=== PATIENT | female | born 1940 | race African-American/Black ===

== ENCOUNTER 2017-03-26 02:51 | Inpatient (IN) ==
[2017-03-26] MEDS ORDERED: ASPIRIN 325 MG TABLET ONE (03:11)
[2017-03-26] MEDS ORDERED: NITROGLYCERIN SL 0.4 MG TABLET SL PRN (03:40)
[2017-03-26] MEDS ORDERED: ASPIRIN 325 MG TABLET PO STA (03:40)
[2017-03-26 03:56] LABS: Basophils # 0.1 10*3/uL (0.0-0.2); Basophils % 0.9 % (0.0-0.8); Eosinophils % 0.1 % (0.00-10.9); Hematocrit 27.8 VOL% (35.7-47.0); Hemoglobin 9.3 GM/DL (12.0-16.0); Immature Granulocytes % 0.7 %; Immature Granulocytes Absolute 0.06 #; Lymphocytes # 0.8 10*3/uL (1.4-4.0); Lymphocytes % 8.8 % (21.3-54.2); Mean Corpuscular HGB Conc 33.5 GM/DL (32-36); Mean Corpuscular Hemoglobin 29 PG (27-34); Mean Corpuscular Volume 85.3 FL (87-102); Monocytes # 0.5 10*3/uL (0.11-0.8); Neutrophils # 7.5 10*3/uL (1.4-7.4); Neutrophils % 83.5 % (38.7-73.9); Platelet Count 184 T/CUMM (130-400); Red Blood Count 3.26 MC/CUMM (3.8-5.5); Red Cell Distribution Width 15.1 % (9.3-17.3); White Blood Count 8.9 T/CUMM (4-12)
[2017-03-26 04:22] LABS: Bilirubin,Total 1.3 MG/DL (0.2-1.0); Osmolality,Calculated 309.4 MOS/KG (273-304); Potassium 4.7 MMOL/L (3.5-5.1); Total Protein 7.5 G/DL (6.4-8.3)
--- NOTE | 2017-03-26 04:25 | Emergency Department Note ---
I, Erica Sloan, am scribing for, and in the presence of, Jonny Colunga MD 03: 55. IKeanu Andrew, MD, personally performed the services described in this documentation, ascribed by Erica Sloan in my presence, and it is both accurate and complete 425 . Arrival - Arrival Chief Complaint: Chest Pain Stated Complaint: chest pains ED Nursing Triage Note: Pt family states thats she has been at home sick complaining of chest pain since yesterday morning. States that she woke them up this morning complaining of pain in the center of her chest that is radiating down in her abd. Pt states that she has sob with pain. Complains of n/v. Mode of Arrival: Wheelchair Limitations: No Limitations Source: Patient Time Seen by Provider: 03/26/17 03:39 - History of Present Illness HPI Narrative: Pt is a 77 y/o female that came to the ED with c/o CP that began yesterday morning. Pt has associated sxs of N/V and SOB but denies edema of the lower extremities. Pt reports the pain radiates down into her abdomen. Pt states she does not know what she was doing when sxs came on. Pt reports the pain is in the middle of her chest. She states she did take a 81 mg aspirin. Pt has a PMHx of HTN, NIDDM, OR, dyslipidemia, renal failure, and COPD. No other complaints/ pain in ED. Onset (ago): day(s) Consistency: constant Severity: mild, moderate Severity scale (1-10): 4 Quality: sharp Allergies/Adverse Reactions: Allergies Allergy/AdvReac Type Severity Reaction Status Date / Time No Known Allergies Allergy Verified 12/18/16 13:48 Home Medications: Home Medications Medication Instructions Recorded Confirmed Type Allopurinol 100 mg PO DAILY 08/10/16 03/26/17 History Aspirin [Ecotrin] 81 mg PO DAILY 08/10/16 03/26/17 History Ferrous Sulfate 325 mg PO DAILY 08/10/16 03/26/17 History Albuterol Sulfate [Ventolin HFA] 2 puff INH Q6H PRN 11/29/16 03/26/17 History Isosorbide Mononitrate [Isosorbide 30 mg PO BID 11/29/16 03/26/17 History Mononitrate ER] Potassium Chloride 20 meq PO QAM 11/29/16 03/26/17 History Amiodarone Tab [Cordarone Tab] 200 mg PO BID #40 tablet 12/03/16 03/26/17 Rx Doxazosin [Cardura] 2 mg PO BID W/MEALS #60 tablet 12/03/16 03/26/17 Rx NIFEdipine XL TAB [Procardia Xl] 30 mg PO DAILY #30 tablet 12/03/16 03/26/17 Rx Simvastatin [Zocor] 10 mg PO BEDTIME #30 tablet 12/03/16 03/26/17 Rx hydrALAZINE TAB [Apresoline Tab] 50 mg PO TID #90 tablet 12/03/16 03/26/17 Rx Levofloxacin Tab [Levaquin Tab] 500 mg PO Q24H #7 tablet 12/18/16 03/26/17 Rx Phenazopyridine [Pyridium] 95 mg PO TID W/MEALS #20 tablet 12/18/16 03/26/17 Rx Acetamin/Codeine 300-30 Tab 1 tablet PO Q6H #10 tablet 01/10/17 03/26/17 Rx [Tylenol/Codeine #3] Nitrofurantoin Macro/[place] 100 mg PO BID #10 capsule 01/10/17 03/26/17 Rx [Macrobid] Review of System - Review of System 12 point system: reviewed and no additional remarkable complaints except as stated - Review of System Constitutional: Absent: chills, fever Respiratory: Present: other (SOB). Absent: cough Cardiovascular: Present: chest pain Gastrointestinal: Present: abdominal pain (CP radiates to the abdomen), nausea, vomiting Musculoskeletal: Absent: joint swelling Skin: Absent: rash Neurological: Absent: headache Psychiatric: Absent: anxiety Medical,Surgical,& Family Hx - Medical History Cardio: History of: Hypertension, OR, Valvular Heart Disease (aortic sclerosis) HEENT: History of: Eye Problem (retinal hemorrhage) Endocrine: History of: Diabetes Mellitus (NIDDM), Dyslipidemia Rheumatology: History of;: Gout Respiratory: History of: COPD Renal: History of: Renal Failure (chronic kidney disease stage III), Renal Problems Musculoskeletal: History of: Musculoskeletal Problems (osteoarthritis) No history of: Amputation Hematology: History of: Anemia - Surgical History Cardiac Surgeries: Sugical HX of: Cardiac Catheterization (negative) Thoracic Surgeries: Patient denies;: Organ Transplant Abdominal Surgeries: Patient denies: Abdominal Surgery Reproductive Surgeries: Surgical HX of;: Section, Hysterectomy Patient denies;: Genitourinary Surgery - Family History Family History: Reports;: Family Diabetes, Family Hypertension - Social History Smoking Status: Never smoker Frequency of Alcohol Use: None Type of Drug Use: None Exam Vital Signs: Vital Signs Temperature 98.6 F 03/26/17 02:51 Pulse Rate 81 03/26/17 02:51 Respiratory Rate 20 03/26/17 03:10 Blood Pressure 233/105 03/26/17 02:51 O2 Sat by Pulse Oximetry 87 L 03/26/17 02:51 - General General appearance: alert, in distress (in distress due to secondary SOB) - Head Head exam: Present: atraumatic, normocephalic - Eye Eye exam: Present: PERRL, EOMI - ENT ENT exam: Present: mucous membranes moist. Absent: mucous membranes dry - Neck Neck exam: Present: full ROM. Absent: tenderness - Chest Chest inspection: Present: symmetric chest wall rise. Absent: tenderness - Respiratory Respiratory exam: Present: normal lung sounds bilaterally, other (tachypnic). Absent: respiratory distress - Cardiovascular Cardiovascular exam: Present: regular rate, normal rhythm, normal heart sounds - Abdominal Exam Abdominal exam: Present: soft. Absent: tenderness - Extremities Exam Extremities exam: Present: full ROM. Absent: tenderness, pedal edema - Back Exam Back exam: Present: full ROM. Absent: tenderness - Neurological Exam Neurological exam: Present: alert, oriented X3, CN II-XII intact. Absent: motor sensory deficit - Psychiatric Psychiatric exam: Present: normal affect, normal mood - Skin Skin exam: Present: warm, diaphoresis Course Course Narrative: Chest pain improved with nitro SL. Labs with elevated troponin and BNP and with elevated BP. EKG with biphasic t waves in V1 and V2. Discussed with vehicle calibration engineer cribber, Dr. Friend, but he refuses admission as the patient had a heart cath in November with only mild to moderate disease. Discussed with Hospitalist for admit. Results - Labs CBC & BMP: 03/26/17 03:09 03/26/17 03:09 Lab Results: I have reviewed the patients labs Labs: Laboratory Tests 03/26/17 03:09 RBC 3.26 L Hgb 9.3 L Hct 27.8 L MCV 85.3 L MPV 13.0 H Neut % (Auto) 83.5 H Lymph % (Auto) 8.8 L Baso % (Auto) 0.9 H Neut # (Auto) 7.5 H Lymph # (Auto) 0.8 L Laboratory Tests 03/26/17 03:09 Sodium 147 H Chloride 118 H Carbon Dioxide 15 L Anion Gap 18.7 H BUN 51 H Creatinine 2.90 H Glucose 177 H Calculated Osmolality 309.4 H Total Bilirubin 1.30 H Laboratory Tests 03/26/17 03:09 Troponin I 0.523 H Laboratory Tests 03/26/17 03:09 B-Natriuretic Peptide > 5000 H - Diagnostic Findings Procedure: Chest x-ray: image reviewed by me (Relatively stable from previous per my read with mild evidence of volume overload) Disposition Clinical Impression: Hypertensive emergency, Hypoxemia, Elevated troponin, CKD (chronic kidney disease), Chest pain Case discussed with: patient, patient's family Disposition: Still a Patient Condition: Guarded
[2017-03-26] MEDS ORDERED: NITROGLYCERIN 2% OINT 1 INCH/GM PACK TOP STA (04:28)
[2017-03-26 04:58] LABS: Apearance,Urine CLOUDY (Clear); Bacteria,Urine Few /HPF (Few); Bilirubin,Urine Negative (Negative); Blood, Urine Moderate mg/dL (Negative); Glucose,Urine (UA) Negative (Negative); Ketones,Urine Negative (Negative); Mucus,Urine Occasional /LPF (Occasional); Nitrite,Urine Negative (Negative); Protein,Urine >=500 MG/DL; RBC,Urine 15 /HPF (0-4); Squamous Epithelial Cell,Urine Occasional /HPF (0-10); Urine Color Yellow (Yellow); Urine Specific Gravity 1.011 (1.001-1.035); Urine Urobilinogen < 2.0 EU/DL (0.2-1.0)
[2017-03-26 05:02] LABS: Barbiturates Screen,Urine Negative (Negative); Benzodiazepines Screen,Urine Negative (Negative); Cannabinoid Screen,Urine Negative (Negative); Opiate Screen,Urine Negative (Negative); Phencyclidine Screen,Urine Negative (Negative)
[2017-03-26] MEDS ORDERED: NITROGLYCERIN 2% OINT 1 INCH/GM PACK TOP ONE (05:26)
[2017-03-26] MEDS: SODIUM CHLORIDE 0.9% 1,000 ML IV STA ×2 (05:36→06:56)
[2017-03-26] MEDS ORDERED: Albuterol Sulfate [Ventolin Hfa] 2 PUFF INH PRN (06:01)
--- NOTE | 2017-03-26 06:54 | EKG Report ---
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
--- NOTE | 2017-03-26 07:12 | History & Physical Report ---
Assessment and Plan (1) Hypertensive emergency Status: Acute Assessment and plan: Hypertensive Emergency/elevated cardiac enzymes/chest pain - Admit to ICU - telemetry - serial cardiac enzymes - IV Nicardipine infusion - Echocardiogram - Consult Cardiology - will monitor Current Visit: Yes (2) Epigastric abdominal pain Status: Acute Assessment and plan: Epigastric pain - Carafate - Protonix -will monitor Current Visit: Yes History of Present Illness Chief complaint: chest pain History of present illness: Ms. Mazariegos is a 77 year old female with a history of hypertension, diabetes, coronary artery disease, chronic kidney disease, and gout that presented to the ER with chest pain for 2 days. Patient reports chest pain was severe, substernal, and non-radiating. Patient also complains shortness of breath is worse with exertion, palpitations, decreased appetite, epigastric pain, and nausea. Patient had a cardiac catheterization on 11/30/2016 and it showed mild disease throughout the vessels. Dr. Eugene is her capsule inspector In the Er, patient was found to be hypoxic and have SBP>200's. Patient was felt to be in hypertensive emergerncy. ER doctor spoke to cardiolgy but the hospitalist service was asked to admit. Home Medications Medication Instructions Recorded Confirmed Type Allopurinol 100 mg PO DAILY 08/10/16 03/26/17 History Aspirin [Ecotrin] 81 mg PO DAILY 08/10/16 03/26/17 History Ferrous Sulfate 325 mg PO DAILY 08/10/16 03/26/17 History Albuterol Sulfate [Ventolin HFA] 2 puff INH Q6H PRN 11/29/16 03/26/17 History Isosorbide Mononitrate [Isosorbide 30 mg PO BID 11/29/16 03/26/17 History Mononitrate ER] Potassium Chloride 20 meq PO QAM 11/29/16 03/26/17 History Amiodarone Tab [Cordarone Tab] 200 mg PO BID #40 tablet 12/03/16 03/26/17 Rx Doxazosin [Cardura] 2 mg PO BID W/MEALS #60 tablet 12/03/16 03/26/17 Rx NIFEdipine XL TAB [Procardia Xl] 30 mg PO DAILY #30 tablet 12/03/16 03/26/17 Rx Simvastatin [Zocor] 10 mg PO BEDTIME #30 tablet 12/03/16 03/26/17 Rx hydrALAZINE TAB [Apresoline Tab] 50 mg PO TID #90 tablet 12/03/16 03/26/17 Rx Levofloxacin Tab [Levaquin Tab] 500 mg PO Q24H #7 tablet 12/18/16 03/26/17 Rx Phenazopyridine [Pyridium] 95 mg PO TID W/MEALS #20 tablet 12/18/16 03/26/17 Rx Acetamin/Codeine 300-30 Tab 1 tablet PO Q6H #10 tablet 01/10/17 03/26/17 Rx [Tylenol/Codeine #3] Nitrofurantoin Macro/[place] 100 mg PO BID #10 capsule 01/10/17 03/26/17 Rx [Macrobid] Allergies Allergy/AdvReac Type Severity Reaction Status Date / Time No Known Allergies Allergy Verified 12/18/16 13:48 12 point system: reviewed and no additional remarkable complaints except as stated Medical,Surgical,& Family Hx - Medical History Cardio: History of: Hypertension, [place], Valvular Heart Disease (aortic sclerosis) HEENT: History of: Eye Problem (retinal hemorrhage) Endocrine: History of: Diabetes Mellitus (NIDDM), Dyslipidemia Rheumatology: History of;: Gout Respiratory: History of: COPD Renal: History of: Renal Failure (chronic kidney disease stage III), Renal Problems Musculoskeletal: History of: Musculoskeletal Problems (osteoarthritis) No history of: Amputation Hematology: History of: Anemia - Surgical History Cardiac Surgeries: Sugical HX of: Cardiac Catheterization (negative) Thoracic Surgeries: Patient denies;: Organ Transplant Abdominal Surgeries: Patient denies: Abdominal Surgery Reproductive Surgeries: Surgical HX of;: Section, Hysterectomy Patient denies;: Genitourinary Surgery - Family History Family History: Reports;: Family Diabetes, Family Hypertension - Social History Smoking Status: Never smoker Frequency of Alcohol Use: None Type of Drug Use: None Exam - Constitutional Vitals: Period Temp Pulse Resp BP Sys/[place]cinty[place] Pulse Ox Last 24 Hr 98.3 F-98.6 F 81-81 20-20 233-233/105-105 87 General appearance: normal weight, no acute distress - Head Head exam: Present: normal inspection - Eye Eye exam: Present: EOMI - Neck Neck exam: Present: normal inspection - Respiratory Respiratory exam: Present: other (coarse breath sounds throughout). Absent: rhonchi, wheezes - Cardiovascular Cardiovascular exam: Present: regular rate and rhythm, systolic murmur. Absent : diastolic murmur - GI/Abdominal GI/Abdominal exam: Present: normal bowel sounds, soft. Absent: distended, tenderness - Extremities Exam Extremities exam: Absent: edema - Neurological Exam Neurological exam: Present: alert, oriented X3 - Psychiatric Psychiatric exam: Present: normal affect Results - Labs CBC & BMP: 03/26/17 03:09 03/26/17 03:09 - EKG EKG results: interpreted by ERMD (non-specific changes) - Diagnostic Findings Procedure: Chest x-ray: pending
--- NOTE | 2017-03-26 07:13 | EKG Report ---
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
--- NOTE | 2017-03-26 08:34 | XRay Report ---
XR chest 1V portable Indication: Chest pain Comparison: 29 November 2016 Findings: The heart and mediastinum are stable in size and configuration. The pulmonary vascularity is slightly increased with bilateral increased interstitial lung density. No other lung infiltrates, effusions, pneumothorax or other abnormality is demonstrated. Impression: Findings suggest mild cardiac decompensation. PROCEDURE INTERPRETED AT [facility] DEPARTMENT OF RADIOLOGY Final Report Signed by: Dr. Louie Ewing
[2017-03-26] MEDS ORDERED: ASPIRIN CHEW 81 MG TABLET PO ONE (08:45)
[2017-03-26] MEDS ORDERED: POTASSIUM CHLORIDE 20 MEQ TABLET PO ONE (08:45)
[2017-03-26] MEDS: PHENAZOPYRIDINE 95 MG TABLET PO SCH ×3 (08:48→16:21)
[2017-03-26] MEDS: POTASSIUM CHLORIDE 20 MEQ TABLET PO SCH (08:48)
[2017-03-26] MEDS: DOXAZOSIN 1 MG TABLET PO SCH ×2 (09:23→16:21)
[2017-03-26] MEDS: FERROUS SULFATE 325 MG TABLET PO SCH (09:24)
[2017-03-26] MEDS: AMIODARONE 200 MG TABLET PO SCH ×2 (09:24→20:55)
[2017-03-26] MEDS: ALLOPURINOL 100 MG TABLET PO SCH (09:24)
--- NOTE | 2017-03-26 10:39 | EKG Report ---
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
[2017-03-26] MEDS ORDERED: GLUCAGON 1 MG VIAL IM PRN (14:06)
[2017-03-26] MEDS ORDERED: niCARdipine INJ 25 MG in SODIUM CHLORIDE 0.9% 240 ML IV SCH (14:06)
[2017-03-26] MEDS ORDERED: DEXTROSE 50% 25 GM/50 ML VIAL IV PRN (14:06)
[2017-03-26] MEDS: ASPIRIN EC 81 MG TABLET PO SCH (14:43)
[2017-03-26] MEDS: PANTOPRAZOLE 40 MG TABLET PO SCH (14:44)
[2017-03-26] MEDS: SUCRALFATE 1 GM/10 ML UDCUP PO SCH ×4 (14:46→20:57)
[2017-03-26] MEDS: ACETAMINOPHEN/CODEINE 300-30 MG TABLET PO SCH ×3 (14:47→23:54)
[2017-03-26] MEDS: INSULIN LISPRO 100 UNIT/ML SUBCUT SCH ×3 (14:48→20:56)
[2017-03-26] MEDS: SIMVASTATIN 10 MG TABLET PO SCH (20:55)
[2017-03-27] MEDS: ACETAMINOPHEN/CODEINE 300-30 MG TABLET PO SCH ×3 (05:48→17:59)
[2017-03-27] MEDS: SUCRALFATE 1 GM/10 ML UDCUP PO SCH ×4 (08:07→22:24)
[2017-03-27] MEDS: INSULIN LISPRO 100 UNIT/ML SUBCUT SCH ×4 (08:07→22:30)
[2017-03-27] MEDS: ALLOPURINOL 100 MG TABLET PO SCH (08:07)
[2017-03-27] MEDS: PANTOPRAZOLE 40 MG TABLET PO SCH (08:08)
[2017-03-27] MEDS: POTASSIUM CHLORIDE 20 MEQ TABLET PO SCH (08:08)
[2017-03-27] MEDS: FERROUS SULFATE 325 MG TABLET PO SCH (08:08)
[2017-03-27] MEDS: PHENAZOPYRIDINE 95 MG TABLET PO SCH (08:08)
[2017-03-27] MEDS: ASPIRIN EC 81 MG TABLET PO SCH (08:08)
[2017-03-27] MEDS: AMIODARONE 200 MG TABLET PO SCH ×2 (08:08→22:23)
[2017-03-27] MEDS: DOXAZOSIN 1 MG TABLET PO SCH ×2 (08:14→17:59)
--- NOTE | 2017-03-27 09:39 | Cardiology Consult Note ---
Assessment and Plan - Time spent with patient Time spent with patient: Greater than 30 minutes (1) Paroxysmal atrial fibrillation Status: Chronic Assessment and plan: She has had this previously but has been stable her present medical regimen. She was admitted in sinus rhythm. Current Visit: Yes (2) Elevated brain natriuretic peptide (BNP) level Status: Acute Assessment and plan: This is probably secondary to diastolic dysfunction with acute hypertensive urgency and a mild exacerbation of heart failure. Current Visit: Yes (3) Coronary artery disease Status: Acute Assessment and plan: She had mild coronary disease previously with the last 3 months and cardiac catheterization. This is not playing a role at this time. Current Visit: Yes (4) Hypertensive urgency, malignant Status: Acute Assessment and plan: This is probably secondary to her missing 2 of her medications. At present her blood pressures are stable on medical therapy. Hopefully she will be able to go home soon. Current Visit: Yes (5) Chronic renal insufficiency, stage III (moderate) Problem details: stage III is baseline; came in with stage IV upon admission Status: Chronic Assessment and plan: This is chronic and really unchanged. Current Visit: No History of Present Illness - Data of Consult Patient: known to practice within the last 3 years Consult date: 03/27/17 Requesting Physician: Bhargav Herm[place]illo - Consult Narrative Reason for consult: Shortness of breath elevated BNP History of present illness: Ms. Mazariegos is a 77 year old female who was admitted through the emergency room shortness of breath and hypertensive urgency. Her chest x-ray per report in by her visualization may have mild cardiac decompensation. Her BNP was greater than 5000. She has had 2 troponins that are been flat and 0.523 and 0.514. Her ECG reveals sinus rhythm with possible left atrial enlargement and left ventricular hypertrophy. There is no acute ischemic changes. She denies any chest pain or palpitations. She recently in the last few days he ran out of 2 of her medications that had not gotten filled yet apparently they were at the drugstore she just had not gotten them. This morning her blood pressures are doing good her present medical regimen. Her history is significant in that she has been followed by Dr. Alexis and seen by Dr. Wilder. Recently in December this year she had an echocardiogram with an ejection fraction of 60% with left ventricular hypertrophy M mild elevated right-sided pressures. She had cardiac catheterization with less than 30% stenosis but a markedly elevated LVEDP. This could be consistent with diastolic dysfunction. She has chronic renal insufficiency with elevated creatinine. If present it appears that she is stable in her shortness of breath and mild cardiac decompensation if present and elevated BNP is prior from diastolic left ventricular function exacerbated by her severely elevated blood pressures. Her elevated blood pressure may be secondary to missing 2 medications for the last several days. At this time probably no further evaluation is needed. She could probably discharge on her present medical regimen. CC: Annel Lake MD - Home Medications and Allergies Home Medications: Home Medications Medication Instructions Recorded Confirmed Type Allopurinol 100 mg PO DAILY 08/10/16 03/26/17 History Aspirin [Ecotrin] 81 mg PO DAILY 08/10/16 03/26/17 History Ferrous Sulfate 325 mg PO DAILY 08/10/16 03/26/17 History Albuterol Sulfate [Ventolin HFA] 2 puff INH Q6H PRN 11/29/16 03/26/17 History Isosorbide Mononitrate [Isosorbide 30 mg PO BID 11/29/16 03/26/17 History Mononitrate ER] Potassium Chloride 20 meq PO QAM 11/29/16 03/26/17 History Amiodarone Tab [Cordarone Tab] 200 mg PO BID #40 tablet 12/03/16 03/26/17 Rx Doxazosin [Cardura] 2 mg PO BID W/MEALS #60 tablet 12/03/16 03/26/17 Rx NIFEdipine XL TAB [Procardia Xl] 30 mg PO DAILY #30 tablet 12/03/16 03/26/17 Rx Simvastatin [Zocor] 10 mg PO BEDTIME #30 tablet 12/03/16 03/26/17 Rx hydrALAZINE TAB [Apresoline Tab] 50 mg PO TID #90 tablet 12/03/16 03/26/17 Rx Levofloxacin Tab [Levaquin Tab] 500 mg PO Q24H #7 tablet 12/18/16 03/26/17 Rx Phenazopyridine [Pyridium] 95 mg PO TID W/MEALS #20 tablet 12/18/16 03/26/17 Rx Acetamin/Codeine 300-30 Tab 1 tablet PO Q6H #10 tablet 01/10/17 03/26/17 Rx [Tylenol/Codeine #3] Nitrofurantoin Macro/[place] 100 mg PO BID #10 capsule 01/10/17 03/26/17 Rx [Macrobid] Allergies/Adverse Reactions: Allergies Allergy/AdvReac Type Severity Reaction Status Date / Time No Known Allergies Allergy Verified 12/18/16 13:48 Review of systems: Constitutional: Denies anorexia, chills, fatigue, fever, frequent falls, night sweats, weight gain, weight loss Eyes: Denies visual changes or loss of vision Ears: Denies decreased hearing, vertigo Nose, mouth and throat: Denies dysphagia, epistaxis, headaches, neck pain, tongue swelling, Neck: Denies thyromegaly or masses. No stiffness. Cardiovascular: as per HPI Respiratory: Denies cough, dyspnea, hemoptysis, dyspnea on exertion, wheezing, snoring Gastrointestinal: Denies abdominal pain, constipation, dyspepsia, dysphagia, hematemesis, hematochezia, melena, nausea, vomiting Genitourinary: Denies dysuria, hematuria, nocturia Musculoskeletal: Denies arthralgias, joint swelling, muscle weakness, myalgias Neurological: denies abnormal gait, abnormal speech, confusion, convulsions, frequent falls, headaches, memory loss, syncope Psychiatric: Denies anxiety, confusion, depression Endocrine: Denies cold intolerance, fatigue, heat intolerance Hematologic/Lymphatic: Denies easy bleeding, easy bruising Dermatologic: Denies Rash, itching, shingles Medical,Surgical,& Family Hx - Medical History Cardio: History of: Hypertension, [place], Valvular Heart Disease (aortic sclerosis) HEENT: History of: Eye Problem (retinal hemorrhage) Endocrine: History of: Diabetes Mellitus (NIDDM), Dyslipidemia Rheumatology: History of;: Gout Respiratory: History of: COPD Renal: History of: Renal Failure (chronic kidney disease stage III), Renal Problems Musculoskeletal: History of: Musculoskeletal Problems (osteoarthritis) No history of: Amputation Hematology: History of: Anemia - Surgical History Cardiac Surgeries: Sugical HX of: Cardiac Catheterization (negative) Thoracic Surgeries: Patient denies;: Organ Transplant, Lobectomy Neurologic Surgeries: Patient denies: Neurologic Surgery Abdominal Surgeries: Patient denies: Abdominal Surgery Reproductive Surgeries: Surgical HX of;: Section, Hysterectomy Patient denies;: Genitourinary Surgery - Family History Family History: Reports;: Family Diabetes, Family Hypertension - Social History Smoking Status: Never smoker Frequency of Alcohol Use: None Type of Drug Use: None Physical Examination Vital Signs Temp Pulse Resp BP Pulse Ox 98.3 F 81 20 233/105 87 L 03/26/17 02:51 03/26/17 02:51 03/26/17 02:51 03/26/17 02:51 03/26/17 02:51 Other: General appearance: normal weight, no acute distress Head exam: normal inspection, atraumatic Eye exam: Pupils are equal and reactive. EOMI. There is no trauma. Ear exam: Anatomically normal. Normal auditory acuity to conversation. Oral exam: No significant oral lesions. Neck exam: normal inspection no JVD. No carotid bruit. Trachea is in midline. Respiratory exam: clear to auscultation bilaterally posteriorly and anteriorly with good air movement. No rales, rhonchi or wheezes. Cardiovascular exam: regular rate and rhythm, she has a faint 1/6 systolic murmur but no gallop or rub. No precordial lift. No bruits over the major arteries. Chest wall/torso: Anatomically normal. No tenderness, deformity Peripheral Pulses: 2+ throughout. GI/Abdominal exam: normal bowel sounds, soft and nontender, no abdominal bruits or pulsatile masses. Musculoskeletal/Extremities exam: normal inspection without edema or cyanosis. No deformities or trauma. Neurological exam: alert, oriented X3. There is no gross neurologic deficits. Psychiatric exam: normal affect, normal mood. Cognitive function is grossly intact. Skin exam: normal color, warm. No rashes or other skin lesions. Result/EKG - Labs CBC & BMP: 03/26/17 03:09 03/26/17 03:09 Lab Results: I have reviewed the past 24 hour labs Labs: Laboratory Results - last 24 hr 03/26/17 03/26/17 15:58 20:54 POC Glucose 136 H 117 H - Impressions Impressions: ECG as described above. Has sinus rhythm possible left atrial enlargement with possible left ventricular hypertrophy. No acute ischemic changes.
--- NOTE | 2017-03-27 11:43 | Hospitalist Progress Note ---
Assessment and Plan (1) Malignant hypertension Status: Resolved Assessment and plan: resolved, off cardene Current Visit: No (2) CHF exacerbation Status: Acute Assessment and plan: acute diastolic dysfunction due to elevated b/p. BNP 5000. echo in Feb ef 60%, lasix bid Current Visit: Yes (3) Acute on chronic renal failure Status: Acute Assessment and plan: will ask Dr. Soriano for help as lasix may worsen renal function, has protein and RBC in urine Current Visit: No (4) Type 2 diabetes mellitus Status: Chronic Assessment and plan: hgb A1c, diabetic re-education Current Visit: No Qualifiers: Diabetes mellitus complication status: with kidney complications Diabetes mellitus complication detail: with chronic kidney disease Diabetes mellitus intermediate designer insulin use: without snf use Chronic kidney disease stage: stage 3 (moderate) Qualified Code(s): E11.22 - Type 2 diabetes mellitus with diabetic chronic kidney disease; N18.3 - Chronic kidney disease, stage 3 ( moderate) (5) Paroxysmal atrial fibrillation Status: Chronic Assessment and plan: rate controlled with amiodarone Current Visit: Yes (6) Coronary artery disease Status: Acute Assessment and plan: positive trop, Dr. Friend has seen, recent cath very little disease Current Visit: Yes (7) Anemia Status: Acute Assessment and plan: cont protonix, guaiac stool, use scd Current Visit: Yes (8) Hematuria Status: Acute Assessment and plan: monitor Current Visit: Yes Hospitalist: Subjective Interval history: stable off cardene drip. Dr. Friend has seen her feels she is not taking her meds Exam - Constitutional Vitals: Period Temp Pulse Resp BP Sys/Mcintyre Pulse Ox Last 24 Hr 96.8 F-98.2 F 57-72 16-28 111-178/31-65 92-97 Exam: Heart Rate-[shukri] Lungs-[CTAB] GI-[+bs soft, NT] Ext-[no edema] Neuro [Motor 5/5], [alert and oriented times 3] psych [normal mood and affect] General [no acute distress] Results - Labs CBC & BMP: 03/26/17 03:09 03/26/17 03:09 Lab Results: I have reviewed the past 24 hour labs - Diagnostic Findings Procedure: Chest x-ray: report reviewed by me (chf)
--- NOTE | 2017-03-27 14:46 | Nephrology Consult Note ---
History of Present Illness Chief complaint: Chronic kidney disease History of present illness: Ms. Mazariegos is a 77 year old female history of chronic kidney disease due to hypertension and diabetes who is followed by Dr. Shaw. Patient was admitted for hypertensive urgency that required ICU stay. Of note patient had been out of 2 of her blood pressure medicines. She has been transitioned off IV pressure medications and has been transferred to a room. Blood pressure has improved. Patient serum creatinine is noted to be 2.9 and appears to be close to patient's baseline. At present she states her breathing has improved. No chest pain. BMP noted to be greater than 5000 she has received IV Lasix. No other changes in her medications. Home Medications Medication Instructions Recorded Confirmed Type Allopurinol 100 mg PO DAILY 08/10/16 03/26/17 History Aspirin [Ecotrin] 81 mg PO DAILY 08/10/16 03/26/17 History Ferrous Sulfate 325 mg PO DAILY 08/10/16 03/26/17 History Albuterol Sulfate [Ventolin HFA] 2 puff INH Q6H PRN 11/29/16 03/26/17 History Isosorbide Mononitrate [Isosorbide 30 mg PO BID 11/29/16 03/26/17 History Mononitrate ER] Potassium Chloride 20 meq PO QAM 11/29/16 03/26/17 History Amiodarone Tab [Cordarone Tab] 200 mg PO BID #40 tablet 12/03/16 03/26/17 Rx Doxazosin [Cardura] 2 mg PO BID W/MEALS #60 tablet 12/03/16 03/26/17 Rx NIFEdipine XL TAB [Procardia Xl] 30 mg PO DAILY #30 tablet 12/03/16 03/26/17 Rx Simvastatin [Zocor] 10 mg PO BEDTIME #30 tablet 12/03/16 03/26/17 Rx hydrALAZINE TAB [Apresoline Tab] 50 mg PO TID #90 tablet 12/03/16 03/26/17 Rx Levofloxacin Tab [Levaquin Tab] 500 mg PO Q24H #7 tablet 12/18/16 03/26/17 Rx Phenazopyridine [Pyridium] 95 mg PO TID W/MEALS #20 tablet 12/18/16 03/26/17 Rx Acetamin/Codeine 300-30 Tab 1 tablet PO Q6H #10 tablet 01/10/17 03/26/17 Rx [Tylenol/Codeine #3] Nitrofurantoin Macro/Dougherty 100 mg PO BID #10 capsule 01/10/17 03/26/17 Rx [Macrobid] Allergies Allergy/AdvReac Type Severity Reaction Status Date / Time No Known Allergies Allergy Verified 12/18/16 13:48 Medical,Surgical,& Family Hx - Medical History Cardio: History of: Hypertension, [place], Valvular Heart Disease (aortic sclerosis) HEENT: History of: Eye Problem (retinal hemorrhage) Endocrine: History of: Diabetes Mellitus (NIDDM), Dyslipidemia Rheumatology: History of;: Gout Respiratory: History of: COPD Renal: History of: Renal Failure (chronic kidney disease stage III), Renal Problems Musculoskeletal: History of: Musculoskeletal Problems (osteoarthritis) No history of: Amputation Hematology: History of: Anemia - Surgical History Cardiac Surgeries: Sugical HX of: Cardiac Catheterization (negative) Thoracic Surgeries: Patient denies;: Organ Transplant, Lobectomy Neurologic Surgeries: Patient denies: Neurologic Surgery Abdominal Surgeries: Patient denies: Abdominal Surgery Reproductive Surgeries: Surgical HX of;: Section, Hysterectomy Patient denies;: Genitourinary Surgery - Family History Family History: Reports;: Family Diabetes, Family Hypertension - Social History Smoking Status: Never smoker Frequency of Alcohol Use: None Type of Drug Use: None Review of Systems Constitutional: fatigue, malaise Cardiovascular: dyspnea, dyspnea on exertion, no chest pain at rest Respiratory: dyspnea, no cough Gastrointestinal: no change in bowel habits, no constipation Exam - Vital Signs Vital signs: Period Temp Pulse Resp BP Sys/Mcintyre Pulse Ox Last 24 Hr 96.8 F-98.2 F 57-70 16-28 111-178/31-67 92-98 - General Appearance General appearance: well-developed, appears started age EENT: ATNC Neck: supple Respiratory: clear Cardiology: regular rate, regular rhythm Gastrointestinal: normoactive bowel sounds, no tenderness, no guarding Neurologic: alert and oriented x3 Musculoskeletal: no clubbing Psychiatric: mood/affect appropriate Results - Labs CBC & BMP: 03/26/17 03:09 03/26/17 03:09 Assessment and Plan (1) Malignant hypertension Status: Resolved Assessment and plan: Blood pressure is better controlled at this time. Continue to encourage patient to take her antihypertensive medications. Current Visit: No (2) Type 2 diabetes mellitus Status: Chronic Current Visit: No Qualifiers: Diabetes mellitus complication status: with kidney complications Diabetes mellitus complication detail: with chronic kidney disease Diabetes mellitus fdc insulin use: without fdc use Chronic kidney disease stage: stage 3 (moderate) Qualified Code(s): E11.22 - Type 2 diabetes mellitus with diabetic chronic kidney disease; N18.3 - Chronic kidney disease, stage 3 ( moderate) (3) Hypertension Status: Chronic Current Visit: No Qualifiers: Hypertension type: essential hypertension Qualified Code(s): I10 - Essential (primary) hypertension (4) Chest pain Status: Resolved Current Visit: No Qualifiers: Chest pain type: chest pain due to myocardial ischemia (5) CKD (chronic kidney disease) Status: Chronic Assessment and plan: Patient is followed by Dr. Shaw. Will make him aware of this patient tomorrow. BMP in a.m. Current Visit: Yes Qualifiers: Chronic kidney disease stage: stage 3 (moderate) Qualified Code(s): N18.3 - Chronic kidney disease, stage 3 (moderate)
[2017-03-27] MEDS: FUROSEMIDE 40 MG/4 ML VIAL IV SCH (16:26)
--- NOTE | 2017-03-27 16:40 | ECHO Report ---
Christina Mazariegos Exam Date: 03/26/2017 14:58 Referring Physician: Technologist: Luz Elena Hall Age: 77 Ht (in): 64 Wt (lb): 160 Gender: F Exam Location: [facility] Echo Indications: SOB, abd. pain, chest pain, CKD, hypoxemia, elevated troponin BP: 233 / 105 HR: 81 Rhythm: Sinus Technical Quality: Fair IMPRESSIONS 1. Left ventricle is normal size overall ejection fraction 50-55%. It worse mild concentric left ventricular hypertrophy with mild diastolic dysfunction. 2. Other cardiac chambers are normal size. 3. Mitral valve is thickened sclerotic but without significant Doppler abnormalities. 4. Minimally sclerotic aortic valve otherwise normal. 5. Right-sided heart valves are unremarkable. 6. No evidence of significantly elevated right-sided pressures. MEASUREMENTS (Male / Female) Normal Values 2D ECHO LV Diastolic Diameter PLAX 4.0 cm 4.2 - 5.9 / 3.9 - 5.3 cm LV Systolic Diameter PLAX 3.1 cm LV Fractional Shortening PLAX 23.3 % IVS Diastolic Thickness 1.3 cm 0.6 - 1.0 / 0.6 - 0.9 cm LVPW Diastolic Thickness 1.1 cm 0.6 - 1.0 / 0.6 - 0.9 cm RV Internal Dim ED PLAX 2.2 cm Aortic Root Diameter 2.2 cm LA Systolic Diameter LX 3.4 cm 3.0 - 4.0 / 2.7 - 3.8 cm DOPPLER TR Peak Velocity 266.0 cm/s TR Peak Gradient 28.3 mmHg FINDINGS Left Ventricle Left ventricle is normal size with overall low normal systolic function ejection fraction 50-55%. They are worse there is some mild concentric left ventricular hypertrophy with grade 1 diastolic dysfunction. No segmental wall motion abnormalities are appreciated. Right Ventricle Normal right ventricular size. Right Atrium Normal right atrial size. Left Atrium Left atrium is upper limits normal size. Mitral Valve Mild mitral valve is thickened with sclerosis and circumferential mitral annular calcification. Trace mitral valve regurgitation. Aortic Valve Aortic valve the tricuspid structure with sclerosis but without stenosis or regurgitation. Tricuspid Valve Mild tricuspid valve sclerosis. Trace tricuspid valve regurgitation. Tricuspid regurgitation velocities suggest a PAP of 33-38 mmHg. Pulmonic Valve Pulmonic valve is grossly unremarkable. Pericardium No pericardial effusion. Aorta Normal size aortic root and proximal ascending aorta. To Friend MD (Electronically Signed) Final Date: 27 Mar 2017 16:39
[2017-03-27] MEDS: SIMVASTATIN 10 MG TABLET PO SCH (22:23)
[2017-03-28] MEDS: ACETAMINOPHEN/CODEINE 300-30 MG TABLET PO SCH ×4 (01:05→17:41)
[2017-03-28 04:49] LABS: Basophils % 0.7 % (0.0-0.8); Hematocrit 23.7 VOL% (35.7-47.0); Hemoglobin 7.9 GM/DL (12.0-16.0); Immature Granulocytes % 0.5 %; Immature Granulocytes Absolute 0.02 #; Lymphocytes # 0.7 10*3/uL (1.4-4.0); Lymphocytes % 17.4 % (21.3-54.2); Mean Corpuscular HGB Conc 33.3 GM/DL (32-36); Mean Corpuscular Hemoglobin 28 PG (27-34); Mean Corpuscular Volume 84.6 FL (87-102); Mean Platelet Volume 13.1 FL (9.6-12.0); Monocytes # 0.5 10*3/uL (0.11-0.8); Monocytes % 12.3 % (1.7-12.7); Neutrophils # 2.8 10*3/uL (1.4-7.4); Neutrophils % 68.1 % (38.7-73.9); Platelet Count 157 T/CUMM (130-400); Red Cell Distribution Width 14.7 % (9.3-17.3); White Blood Count 4.1 T/CUMM (4-12)
[2017-03-28 05:30] LABS: Calcium 8.7 MG/DL (8.5-10.1); Magnesium 2.3 MG/DL (1.8-2.4); Osmolality,Calculated 298.1 MOS/KG (273-304)
[2017-03-28] MEDS: ASPIRIN EC 81 MG TABLET PO SCH (08:51)
[2017-03-28] MEDS: AMIODARONE 200 MG TABLET PO SCH ×2 (08:51→21:26)
[2017-03-28] MEDS: ALLOPURINOL 100 MG TABLET PO SCH (08:51)
[2017-03-28] MEDS: SUCRALFATE 1 GM/10 ML UDCUP PO SCH ×4 (08:51→21:25)
[2017-03-28] MEDS: DOXAZOSIN 1 MG TABLET PO SCH ×2 (08:51→17:26)
[2017-03-28] MEDS: FERROUS SULFATE 325 MG TABLET PO SCH (08:52)
[2017-03-28] MEDS: POTASSIUM CHLORIDE 20 MEQ TABLET PO SCH (08:52)
[2017-03-28] MEDS: PANTOPRAZOLE 40 MG TABLET PO SCH (08:52)
[2017-03-28] MEDS: INSULIN LISPRO 100 UNIT/ML SUBCUT SCH ×4 (08:54→21:57)
[2017-03-28] MEDS: FUROSEMIDE 40 MG/4 ML VIAL IV SCH (08:54)
--- NOTE | 2017-03-28 12:02 | Nephrology Progress Note ---
Nephrology - PN: Subj Interval history: She is awake and alert. She denies shortness of breath at rest. Blood pressure is controlled Exam (PN)-Nephrology - Vital Signs Vital signs: Period Temp Pulse Resp BP Sys/Mcintyre Pulse Ox Last 24 Hr 97.3 F-98.2 F 54-64 18-20 113-148/37-77 94-100 Exam: ENT: Normal Cardiovascular: Regular rate and rhythm. No murmur rub or gallop Lungs: Clear Extremities: No edema - Lab 03/28/17 04:30 03/28/17 04:30 Most recent lab results Calcium 8.7 MG/DL (8.5-10.1) 03/28/17 04:30 Magnesium 2.3 MG/DL (1.8-2.4) 03/28/17 04:30 Assessment and Plan (1) Acute on chronic renal failure Status: Acute Assessment and plan: 77-year-old woman admitted with: * Hypertension, severe. She was out of her outpatient medications. Blood pressure is now well controlled * CHF, diastolic. Precipitated by uncontrolled hypertension. This has improved. Diuretic will be decreased * CRF stage III. Baseline creatinine 2.5 in May 2016 * ARF on CRF. Decrease diuretic as noted above * Diabetes mellitus * COPD Current Visit: No (2) Hypertensive emergency Status: Acute Current Visit: Yes (3) COPD (chronic obstructive pulmonary disease) Status: Chronic Current Visit: No Qualifiers: COPD type: unspecified COPD Qualified Code(s): J44.9 - Chronic obstructive pulmonary disease, unspecified (4) Type 2 diabetes mellitus Status: Chronic Current Visit: No Qualifiers: Diabetes mellitus complication status: with kidney complications Diabetes mellitus complication detail: with chronic kidney disease Diabetes mellitus longterm insulin use: without terminal worker use Chronic kidney disease stage: stage 3 (moderate) Qualified Code(s): E11.22 - Type 2 diabetes mellitus with diabetic chronic kidney disease; N18.3 - Chronic kidney disease, stage 3 ( moderate)
--- NOTE | 2017-03-28 13:33 | Hospitalist Progress Note ---
Assessment and Plan (1) Malignant hypertension Status: Resolved Assessment and plan: 1)malignant HTN- now controlled back on her meds. Her HTN caused her acute diastolic heart failure and acute on chronic renal failure. Continue diuresis. 2)elevated troponin- recent cath with v little disease 3)paroxysmal afib-rate controlled. 4)anemia- H&H dropped. transfuse 2 unit. no BM yet for stool guaiac, and no other source of overt bleeding other than hematuria which was mild on UA. repeat UA. no record of GI eval in old chart. 5)dispo- she wants to return home. may need home health, monitor. Current Visit: No (2) Acute on chronic renal failure Status: Acute Current Visit: No (3) Type 2 diabetes mellitus Status: Chronic Current Visit: No Qualifiers: Diabetes mellitus complication status: with kidney complications Diabetes mellitus complication detail: with chronic kidney disease Diabetes mellitus intermediate insulin use: without intermediate use Chronic kidney disease stage: stage 3 (moderate) Qualified Code(s): E11.22 - Type 2 diabetes mellitus with diabetic chronic kidney disease; N18.3 - Chronic kidney disease, stage 3 ( moderate) (4) Paroxysmal atrial fibrillation Status: Chronic Current Visit: Yes (5) Coronary artery disease Status: Acute Current Visit: Yes (6) CHF exacerbation Status: Acute Current Visit: Yes (7) Anemia Status: Acute Current Visit: Yes (8) Hematuria Status: Acute Current Visit: Yes Hospitalist: Subjective Interval history: Mrs Mazariegos is feeling much better than she did on admission. She is no longer short of breath. She was not taking her meds prior to admission. Exam - Constitutional Vitals: Period Temp Pulse Resp BP Sys/Mcintyre Pulse Ox Last 24 Hr 97.3 F-98.2 F 54-64 18-20 117-148/37-77 94-100 General appearance: no acute distress, over weight - Head Head exam: Present: normocephalic, atraumatic - Eye Eye exam: Present: EOMI. Absent: scleral icterus - Respiratory Respiratory exam: Present: clear to auscultation bilaterally. Absent: rales, rhonchi, wheezes - Cardiovascular Cardiovascular exam: Present: regular rate and rhythm - GI/Abdominal GI/Abdominal exam: Present: normal bowel sounds, soft. Absent: tenderness - Extremities Exam Extremities exam: Absent: edema - Neurological Exam Neurological exam: Present: alert, oriented X3 Results - Labs CBC & BMP: 03/28/17 04:30 03/28/17 04:30 Lab Results: I have reviewed the past 24 hour labs
[2017-03-28] MEDS ORDERED: SODIUM CHLORIDE 0.9% 250 ML IV PRN (13:38)
--- NOTE | 2017-03-28 14:23 | Cardiology Progress Note ---
Cardiology - PN: Subj Interval history: Cardiology note 77-year-old woman admitted with diastolic congestive heart failure. BNP level greater than 5000 Telemetry shows steady sinus rhythm Denies chest pain or dyspnea. Blood pressure 130/74 O2 sat 95% on 2 L cannula Decreased breath sounds few basilar crackles in the bases Regular rhythm no gallop Abdomen soft benign No leg edema Lab data today White count 4.8 hemoglobin 7.9 hematocrit 23.7 MCV 84 Sodium 142 potassium 5.0 chloride 113 CO2 18 BUN 58 creatinine 3.40 Estimated GFR 15 mL/min Impression Diastolic congestive heart failure Chronic renal failure creatinine 3.40 GFR 15 mL/min Hypertensive urgency-resolved Paroxysmal atrial fibrillation-currently sinus rhythm on amiodarone Echo shows ejection fraction of 60% with LVH Mild CAD. Cardiac cath November 30, [address] Wilder showed EDP of 40 with 30% ostial left main and only mild disease in the LAD circumflex and right coronary Plan Amiodarone Monitor blood pressure 40 mg Lasix daily Exam (Progress Note) - Constitutional Vitals: Period Temp Pulse Resp BP Sys/Mcintyre Pulse Ox Last 24 Hr 97.3 F-98.0 F 54-64 18-20 123-148/37-77 94-100 Result/EKG - Labs CBC & BMP: 03/28/17 04:30 03/28/17 04:30 Labs: Laboratory Results - last 24 hr 03/27/17 03/27/17 03/27/17 07:39 11:40 16:31 WBC RBC Hgb Hct MCV MCH MCHC RDW Plt Count MPV Neut % (Auto) Lymph % (Auto) Steele % (Auto) Eos % (Auto) Baso % (Auto) Neut # (Auto) Lymph # (Auto) Steele # (Auto) Eos # (Auto) Baso # (Auto) Immature Gran % Nucleated RBC % Immature Gran # Nucleated RBCs # Sodium Potassium Chloride Carbon Dioxide Anion Gap BUN Creatinine GFR Calculation BUN/Creatinine Ratio Glucose POC Glucose 122 H 142 H 111 H Calculated Osmolality Calcium Magnesium 03/27/17 03/28/17 03/28/17 22:21 04:30 04:30 WBC 4.1 D RBC 2.80 L Hgb 7.9 L Hct 23.7 L MCV 84.6 L MCH 28 MCHC 33.3 RDW 14.7 Plt Count 157 MPV 13.1 H Neut % (Auto) 68.1 Lymph % (Auto) 17.4 L Steele % (Auto) 12.3 Eos % (Auto) 1.0 Baso % (Auto) 0.7 Neut # (Auto) 2.8 Lymph # (Auto) 0.7 L Steele # (Auto) 0.5 Eos # (Auto) 0.0 Baso # (Auto) 0.0 Immature Gran % 0.5 Nucleated RBC % 0.0 Immature Gran # 0.02 Nucleated RBCs # 0.00 Sodium 142 Potassium 5.0 Chloride 113 H Carbon Dioxide 18 L Anion Gap 16.0 H BUN 58 H Creatinine 3.40 H GFR Calculation 15 BUN/Creatinine Ratio 17.00 Glucose 105 POC Glucose 143 H Calculated Osmolality 298.1 Calcium 8.7 Magnesium 2.3 03/28/17 03/28/17 07:48 11:45 WBC RBC Hgb Hct MCV MCH MCHC RDW Plt Count MPV Neut % (Auto) Lymph % (Auto) Steele % (Auto) Eos % (Auto) Baso % (Auto) Neut # (Auto) Lymph # (Auto) Steele # (Auto) Eos # (Auto) Baso # (Auto) Immature Gran % Nucleated RBC % Immature Gran # Nucleated RBCs # Sodium Potassium Chloride Carbon Dioxide Anion Gap BUN Creatinine GFR Calculation BUN/Creatinine Ratio Glucose POC Glucose 114 H 140 H Calculated Osmolality Calcium Magnesium
[2017-03-28] MEDS ORDERED: FUROSEMIDE 40 MG/4 ML VIAL IV ONE (15:20)
[2017-03-28 17:32] LABS: Apearance,Urine CLEAR (Clear); Bacteria,Urine Occasional /HPF (Few); Bilirubin,Urine Negative (Negative); Blood, Urine Negative (Negative); Glucose,Urine (UA) Negative (Negative); Ketones,Urine Negative (Negative); Mucus,Urine Occasional /LPF (Occasional); Nitrite,Urine Positive (Negative); Protein,Urine Negative; RBC,Urine 1 /HPF (0-4); Squamous Epithelial Cell,Urine Occasional /HPF (0-10); Urine Color Yellow (Yellow); Urine Specific Gravity 1.004 (1.001-1.035); Urine Urobilinogen < 2.0 EU/DL (0.2-1.0); WBC,Urine 5 /HPF (0-6)
[2017-03-28] MEDS: SIMVASTATIN 10 MG TABLET PO SCH (21:26)
[2017-03-29] MEDS: ACETAMINOPHEN/CODEINE 300-30 MG TABLET PO SCH ×4 (01:18→17:36)
[2017-03-29 06:07] LABS: Basophils # 0.1 10*3/uL (0.0-0.2); Basophils % 0.8 % (0.0-0.8); Eosinophils # 0.1 10*3/uL (0.0-0.87); Eosinophils % 1.1 % (0.00-10.9); Hematocrit 35.4 VOL% (35.7-47.0); Hemoglobin 12.2 GM/DL (12.0-16.0); Immature Granulocytes % 0.5 %; Immature Granulocytes Absolute 0.03 #; Lymphocytes # 0.8 10*3/uL (1.4-4.0); Lymphocytes % 12.3 % (21.3-54.2); Mean Corpuscular HGB Conc 34.5 GM/DL (32-36); Mean Corpuscular Hemoglobin 29 PG (27-34); Mean Corpuscular Volume 82.7 FL (87-102); Monocytes # 0.8 10*3/uL (0.11-0.8); Monocytes % 11.6 % (1.7-12.7); Neutrophils # 4.8 10*3/uL (1.4-7.4); Neutrophils % 73.7 % (38.7-73.9); Platelet Count 183 T/CUMM (130-400); Red Blood Count 4.28 MC/CUMM (3.8-5.5); Red Cell Distribution Width 14.9 % (9.3-17.3); White Blood Count 6.5 T/CUMM (4-12)
[2017-03-29 06:54] LABS: Calcium 9.3 MG/DL (8.5-10.1); Magnesium 2.3 MG/DL (1.8-2.4); Osmolality,Calculated 298.3 MOS/KG (273-304)
[2017-03-29] MEDS: SUCRALFATE 1 GM/10 ML UDCUP PO SCH ×4 (08:50→22:13)
[2017-03-29] MEDS: PANTOPRAZOLE 40 MG TABLET PO SCH (08:50)
[2017-03-29] MEDS: DOXAZOSIN 1 MG TABLET PO SCH ×2 (08:51→17:09)
[2017-03-29] MEDS: FUROSEMIDE 40 MG TABLET PO SCH (08:52)
[2017-03-29] MEDS: FERROUS SULFATE 325 MG TABLET PO SCH (08:52)
[2017-03-29] MEDS: ALLOPURINOL 100 MG TABLET PO SCH (08:52)
[2017-03-29] MEDS: ASPIRIN EC 81 MG TABLET PO SCH (08:52)
[2017-03-29] MEDS: POTASSIUM CHLORIDE 20 MEQ TABLET PO SCH (08:52)
[2017-03-29] MEDS: AMIODARONE 200 MG TABLET PO SCH ×2 (08:52→22:13)
[2017-03-29] MEDS: INSULIN LISPRO 100 UNIT/ML SUBCUT SCH ×4 (08:53→21:29)
--- NOTE | 2017-03-29 10:18 | Cardiology Progress Note ---
Cardiology - PN: Subj Interval history: Cardiology note 77-year-old woman admitted with diastolic heart failure and anemia. H&H today is 12.2 and 35.4 respectively after 2 unit transfusion Blood pressure 136/80 Telemetry shows sinus rhythm rare PVC O2 sat 96% Regular rhythm soft systolic murmur Decreased breath sounds few crackles on the right side No leg edema Lab data today Sodium 141 potassium 5.0 chloride 112 CO2 19 BUN 59 creatinine 3.80 Magnesium 2.3 glucose 118 Hemoglobin 12.2 hematocrit 35.4 Impression Diastolic congestive heart failure Chronic renal failure creatinine 3.80 BUN 59 Hypertensive urgency resolved Paroxysmal atrial fibrillation currently sinus rhythm on amiodarone Echo shows ejection fraction 60% with LVH Mild CAD. Heart cath November 30, 2016 Dr. Wilder showed EDP 40 with 30% ostial left main and mild disease only in the LAD circumflex and right coronary Plan Continue BP meds Increase activity Home soon Exam (Progress Note) - Constitutional Vitals: Period Temp Pulse Resp BP Sys/Mcintyre Pulse Ox Last 24 Hr 96.6 F-97.6 F 52-60 14-20 120-171/40-88 95-100 Result/EKG - Labs CBC & BMP: 03/29/17 05:29 03/29/17 05:26 Labs: Laboratory Results - last 24 hr 03/26/17 03/28/17 03/28/17 14:48 11:45 13:59 WBC RBC Hgb Hct MCV MCH MCHC RDW Plt Count MPV Neut % (Auto) Lymph % (Auto) Norman % (Auto) Eos % (Auto) Baso % (Auto) Neut # (Auto) Lymph # (Auto) Norman # (Auto) Eos # (Auto) Baso # (Auto) Immature Gran % Nucleated RBC % Immature Gran # Nucleated RBCs # Sodium Potassium Chloride Carbon Dioxide Anion Gap BUN Creatinine GFR Calculation BUN/Creatinine Ratio Glucose POC Glucose 153 H 140 H Calculated Osmolality Calcium Magnesium Urine Color Urine Appearance Urine pH Ur Specific [place] Urine Protein Urine Glucose (UA) Urine Ketones Urine Blood Urine Nitrate Urine Bilirubin Urine Urobilinogen Urine Leukocytes Urine RBC Urine WBC Ur Squamous Epith Cells Urine Bacteria Urine Mucus Ur Culture Indicated? Blood Type O POSITIVE Antibody Screen Negative Crossmatch See Detail 03/28/17 03/28/17 03/28/17 16:26 16:45 20:27 WBC RBC Hgb Hct MCV MCH MCHC RDW Plt Count MPV Neut % (Auto) Lymph % (Auto) Norman % (Auto) Eos % (Auto) Baso % (Auto) Neut # (Auto) Lymph # (Auto) Norman # (Auto) Eos # (Auto) Baso # (Auto) Immature Gran % Nucleated RBC % Immature Gran # Nucleated RBCs # Sodium Potassium Chloride Carbon Dioxide Anion Gap BUN Creatinine GFR Calculation BUN/Creatinine Ratio Glucose POC Glucose 140 H 168 H Calculated Osmolality Calcium Magnesium Urine Color Yellow Urine Appearance Clear Urine pH 5.0 Ur Specific [place] 1.004 Urine Protein Negative Urine Glucose (UA) Negative Urine Ketones Negative Urine Blood Negative Urine Nitrate Positive H Urine Bilirubin Negative Urine Urobilinogen < 2.0 H Urine Leukocytes Moderate H Urine RBC 1 Urine WBC 5 Ur Squamous Epith Cells Occasional Urine Bacteria Occasional Urine Mucus Occasional Ur Culture Indicated? Results to follow Blood Type Antibody Screen Crossmatch 03/29/17 03/29/17 03/29/17 05:26 05:29 07:30 WBC 6.5 D RBC 4.28 D Hgb 12.2 D Hct 35.4 L MCV 82.7 L MCH 29 MCHC 34.5 RDW 14.9 Plt Count 183 MPV 13.0 H Neut % (Auto) 73.7 Lymph % (Auto) 12.3 L Norman % (Auto) 11.6 Eos % (Auto) 1.1 Baso % (Auto) 0.8 Neut # (Auto) 4.8 Lymph # (Auto) 0.8 L Norman # (Auto) 0.8 Eos # (Auto) 0.1 Baso # (Auto) 0.1 Immature Gran % 0.5 Nucleated RBC % 0.0 Immature Gran # 0.03 Nucleated RBCs # 0.00 Sodium 141 Potassium 5.0 Chloride 112 H Carbon Dioxide 19 L Anion Gap 15.0 BUN 59 H Creatinine 3.80 H GFR Calculation 13 BUN/Creatinine Ratio 15.00 Glucose 118 H POC Glucose 126 H Calculated Osmolality 298.3 Calcium 9.3 Magnesium 2.3 Urine Color Urine Appearance Urine pH Ur Specific [place] Urine Protein Urine Glucose (UA) Urine Ketones Urine Blood Urine Nitrate Urine Bilirubin Urine Urobilinogen Urine Leukocytes Urine RBC Urine WBC Ur Squamous Epith Cells Urine Bacteria Urine Mucus Ur Culture Indicated? Blood Type Antibody Screen Crossmatch
--- NOTE | 2017-03-29 13:52 | Hospitalist Progress Note ---
Assessment and Plan (1) Acute on chronic renal failure Status: Acute Assessment and plan: 1)malignant HTN- controlled now. 2)paroxysmal afib- now in NSR 3)anemia- H&H holding after transfusion. No stool for guaiac. no sign of bleeding. may need outpatient GI workup. 4)dispo- will need home health at discharge. She lives with her daughter who thinks she is back to her usual self. 5)DM- glucose controlled. 6)bacturia- culture negative. Current Visit: No (2) Type 2 diabetes mellitus Status: Chronic Current Visit: No Qualifiers: Diabetes mellitus complication status: with kidney complications Diabetes mellitus complication detail: with chronic kidney disease Diabetes mellitus medical terminologist insulin use: without intermediate use Chronic kidney disease stage: stage 3 (moderate) Qualified Code(s): E11.22 - Type 2 diabetes mellitus with diabetic chronic kidney disease; N18.3 - Chronic kidney disease, stage 3 ( moderate) (3) Paroxysmal atrial fibrillation Status: Chronic Current Visit: Yes (4) Coronary artery disease Status: Acute Current Visit: Yes (5) CHF exacerbation Status: Acute Current Visit: Yes (6) Anemia Status: Acute Current Visit: Yes (7) Hematuria Status: Acute Current Visit: Yes Hospitalist: Subjective Interval history: Mrs Mazariegso is feeling good today and wants to go home. Dr Eugene recommends that she stay another day. She has been up to walk in the [place] and has taken a shower. Exam - Constitutional Vitals: Period Temp Pulse Resp BP Sys/Mcintyre Pulse Ox Last 24 Hr 96.6 F-97.6 F 51-60 14-20 120-171/40-88 95-100 General appearance: no acute distress, over weight - Head Head exam: Present: normocephalic, atraumatic - Eye Eye exam: Present: EOMI. Absent: scleral icterus - Respiratory Respiratory exam: Present: clear to auscultation bilaterally - Cardiovascular Cardiovascular exam: Present: regular rate and rhythm - GI/Abdominal GI/Abdominal exam: Present: normal bowel sounds, soft. Absent: tenderness - Extremities Exam Extremities exam: Absent: edema - Neurological Exam Neurological exam: Present: alert, oriented X3 Results - Labs CBC & BMP: 03/29/17 05:29 03/29/17 05:26 Lab Results: I have reviewed the past 24 hour labs
--- NOTE | 2017-03-29 21:29 | Nephrology Progress Note ---
Nephrology - PN: Subj Interval history: No shortness of breath. No new symptoms Exam (PN)-Nephrology - Vital Signs Vital signs: Period Temp Pulse Resp BP Sys/Mcintyre Pulse Ox Last 24 Hr 96.7 F-98.0 F 51-57 14-20 120-199/64-88 93-99 Exam: ENT: Normal Cardiovascular: Regular rate and rhythm. No murmur rub or gallop Lungs: Clear Extremities: No edema - Lab 03/29/17 05:29 03/29/17 05:26 Most recent lab results Calcium 9.3 MG/DL (8.5-10.1) 03/29/17 05:26 Magnesium 2.3 MG/DL (1.8-2.4) 03/29/17 05:26 Assessment and Plan (1) Acute on chronic renal failure Status: Acute Assessment and plan: 77-year-old woman admitted with: * Hypertension, severe. She was out of her outpatient medications. Blood pressure is now well controlled * CHF, diastolic. Precipitated by uncontrolled hypertension. This has improved. Diuretic decreased * CRF stage III. Baseline creatinine 2.5 in May 2016 * ARF on CRF. Decrease diuretic as noted above * Diabetes mellitus * COPD Current Visit: No (2) Hypertensive emergency Status: Acute Current Visit: Yes (3) COPD (chronic obstructive pulmonary disease) Status: Chronic Current Visit: No Qualifiers: COPD type: unspecified COPD Qualified Code(s): J44.9 - Chronic obstructive pulmonary disease, unspecified (4) Type 2 diabetes mellitus Status: Chronic Current Visit: No Qualifiers: Diabetes mellitus complication status: with kidney complications Diabetes mellitus complication detail: with chronic kidney disease Diabetes mellitus prison insulin use: without terminal manager use Chronic kidney disease stage: stage 3 (moderate) Qualified Code(s): E11.22 - Type 2 diabetes mellitus with diabetic chronic kidney disease; N18.3 - Chronic kidney disease, stage 3 ( moderate)
[2017-03-29] MEDS: SIMVASTATIN 10 MG TABLET PO SCH (22:13)
[2017-03-30] MEDS: ACETAMINOPHEN/CODEINE 300-30 MG TABLET PO SCH ×3 (01:51→14:20)
[2017-03-30 06:50] LABS: Calcium 9.1 MG/DL (8.5-10.1); Magnesium 2.4 MG/DL (1.8-2.4); Osmolality,Calculated 295.4 MOS/KG (273-304)
--- NOTE | 2017-03-30 09:13 | Discharge Summary ---
Hospital Course - Hospital Course Hospital Course: 77AAF w history of HTN, DM, CAD, CKD and gout admitted by hospitalist on w CP, SOB, palpitations and decreased appetite. she was found to be in hypertensive emergency that subsequently caused an acute diastolic heart failure and acute on chronic renal failure. pt was admitted to the unit on cardene infusion. BP have stabilized and she was restarted on her home regimen. pt ultimately had run out of 2 of her BP meds and never got them refilled. Dr eugene was consulted as her primary director of global sales and followed her. pt had heart cath done in nov that showed minimal coronary disease. her echo done this visit showed some worsening left ventricular hypertrophy w EF of 50-55%. dr alvarez was consulted as her primary private inquiry agent due to acute on chronic renal failure. pt was diuresed w lasix and her creatinine is holding stable at 3.8. she will need to go home on lasix at least for now. she was also anemic and had a drop in her blood counts and was given 2 units of blood. no source of bleeding was ever found. pt also was on abx for uti poa and her ua on admission was neg. abx were stopped and repeat ua w clean catch was positive but cultures were negative. will do stat ua today and if positive, will send pt home on abx. pt was adequately diuresed and BP are stable. she has a history of afib but she has been in NSR on amiodorone. pt is feeling much better and has reached maximum hospital benefit. She is declining home health stating she has her daughter and 4 granddaughters to help. She will be dc home w follow up w dr eugene, dr alvarez w [facility], and dr Shereen Luna her PCP. we will also set her up w GI appt for anemia. she states she has seen someone at [facility] before but cant remember who it was. Pt's case was coordinated w dr evans, cardiology, and nephrology, along with the pt and family. care coordination, chart review and discharge paperwork took approximately 43 mins. - Time spent with patient Time with patient DS: Greater than 30 minutes Diagnosis - Discharge Diagnosis (1) Acute on chronic renal failure Status: Resolved (2) Type 2 diabetes mellitus Status: Chronic (3) Hypertensive emergency Status: Resolved (4) Paroxysmal atrial fibrillation Status: Chronic (5) Elevated brain natriuretic peptide (BNP) level Status: Resolved (6) Coronary artery disease Status: Chronic (7) CHF exacerbation Status: Resolved Discharge Plan - Discharge Data Disposition: Disch To Home/Self Care Condition at Discharge: Stable Discharge Diet: diabetic diet Activity: resume usual activities as tolerated Hygiene: no restrictions Driving: no restrictions Contact your physician if you experience:: Shortness of breath - Discharge Medications New Furosemide Tab [Lasix Tab] 40 mg PO DAILY #60 tablet Continue Aspirin [Ecotrin] 81 mg PO DAILY Ferrous Sulfate 325 mg PO DAILY Allopurinol 100 mg PO DAILY Albuterol Sulfate [Ventolin HFA] 2 puff INH Q6H PRN PRN Reason: Shortness Of Breath/Wheezing Isosorbide Mononitrate [Isosorbide Mononitrate ER] 30 mg PO BID hydrALAZINE TAB [Apresoline Tab] 50 mg PO TID #90 tablet Acetamin/Codeine 300-30 Tab [Tylenol/Codeine #3] 1 tablet PO Q6H #10 tablet Potassium Chloride 20 meq PO QAM Amiodarone Tab [Cordarone Tab] 200 mg PO BID #40 tablet Doxazosin [Cardura] 2 mg PO BID W/MEALS #60 tablet NIFEdipine XL TAB [Procardia Xl] 30 mg PO DAILY #30 tablet Simvastatin [Zocor] 10 mg PO BEDTIME #30 tablet Discontinued Phenazopyridine [Pyridium] 95 mg PO TID W/MEALS #20 tablet Levofloxacin Tab [Levaquin Tab] 500 mg PO Q24H #7 tablet Nitrofurantoin Macro/Magoffin [Macrobid] 100 mg PO BID #10 capsule - Follow Up or Referral Follow Up: Nicola Eugene MD [Physician] - 1 Month Joce Alvarez MD [Physician] - (keep already scheduled appt) Monty Cook MD [Physician] - 1 Month (appt for outpatient workup for anemia) Shantal Luna DO [Primary Care Provider] - 2 Weeks - Forms/Instructions Exam - Constitutional Vitals: Period Temp Pulse Resp BP Sys/Mcintyre Pulse Ox Last 24 Hr 96.7 F-98.8 F 50-86 12-20 127-199/58-82 92-97 Exam: 77-year-old -[place]ic female, no acute distress Chest clear CV regular rate and rhythm Abdomen soft and nontender Extremities no edema Discharge Results Procedures and tests throughout hospitalization: Pending Orders 03/27/17 11:57 Occult Blood, Stool Stat Labs on day of discharge: Labs from last 24 hours 03/30/17 03/29/17 03/29/17 06:03 21:10 17:07 Sodium 140 Potassium 5.0 Chloride 110 H Carbon Dioxide 21 Anion Gap 14.0 BUN 55 H Creatinine 3.80 H GFR Calculation 13 BUN/Creatinine Ratio 14.00 Glucose 134 H POC Glucose 114 H 92 Calculated Osmolality 295.4 Calcium 9.1 Magnesium 2.4 03/29/17 11:58 Sodium Potassium Chloride Carbon Dioxide Anion Gap BUN Creatinine GFR Calculation BUN/Creatinine Ratio Glucose POC Glucose 136 H Calculated Osmolality Calcium Magnesium DS: Provider Date of admission: 03/26/17 05:59 Primary care physician: Shantal Luna DO Attending physician on admission: Tejinder Hermosillo Consults: 03/26/17 14:06 Consult to Physician [CONS] Routine Comment: Consulting Provider: Nicola Eugene Person Notified: Dr. Larson Date Notified: 03/26/17 Time Notified: 14:35 Consult Notification Comment: Notified over phone. 03/27/17 11:48 Consult to Physician [CONS] Routine Comment: worsening renal function Consulting Provider: Joce Alvarez When should Consulting Provider be notified: Now Consult to Specialist Group: Nephrology Person Notified: GARFIELD Date Notified: 03/28/17 Time Notified: 09:55 03/27/17 11:54 Consult to [facility], Educator [CONS] Routine Reason for Drum Tender: Re-education Discharging clinician: MARIZA Ojeda Expected date of discharge: 03/30/17
[2017-03-30] MEDS: DOXAZOSIN 1 MG TABLET PO SCH (09:28)
[2017-03-30] MEDS: SUCRALFATE 1 GM/10 ML UDCUP PO SCH ×3 (09:28→17:39)
[2017-03-30] MEDS: ALLOPURINOL 100 MG TABLET PO SCH (09:29)
[2017-03-30] MEDS: ASPIRIN EC 81 MG TABLET PO SCH (09:30)
[2017-03-30] MEDS: POTASSIUM CHLORIDE 20 MEQ TABLET PO SCH (09:30)
[2017-03-30] MEDS: AMIODARONE 200 MG TABLET PO SCH (09:30)
[2017-03-30] MEDS: FUROSEMIDE 40 MG TABLET PO SCH (09:30)
[2017-03-30] MEDS: PANTOPRAZOLE 40 MG TABLET PO SCH (09:30)
[2017-03-30] MEDS: FERROUS SULFATE 325 MG TABLET PO SCH (09:30)
[2017-03-30] MEDS: INSULIN LISPRO 100 UNIT/ML SUBCUT SCH ×3 (09:31→17:38)
[2017-03-30 11:15] LABS: Apearance,Urine CLOUDY (Clear); Bilirubin,Urine Negative (Negative); Blood, Urine Negative (Negative); Glucose,Urine (UA) Negative (Negative); Ketones,Urine Negative (Negative); Mucus,Urine Occasional /LPF (Occasional); Nitrite,Urine Negative (Negative); Protein,Urine 30 MG/DL; RBC,Urine 2 /HPF (0-4); Squamous Epithelial Cell,Urine Occasional /HPF (0-10); Urine Color Yellow (Yellow); Urine Specific Gravity 1.006 (1.001-1.035); Urine Urobilinogen < 2.0 EU/DL (0.2-1.0); WBC,Urine 74 /HPF (0-6)
--- NOTE | 2017-03-30 16:56 | Cardiology Progress Note ---
Cardiology - PN: Subj Interval history: Cardiology note Denies chest pain or palpitations. She does tire easily. Telemetry shows sinus rhythm in the 50s-60s without ectopy or pauses Blood pressure 146/80 O2 sat 95% room air Decreased breath sounds Regular rhythm no gallop No leg edema Lab data today Sodium 140 potassium 5.0 chloride 110 CO2 21 BUN 55 creatinine 3.80 Impression Diastolic heart failure Chronic renal failure creatinine 3.80 BUN 55 Hypertensive urgency resolved Paroxysmal atrial fibrillation, currently sinus rhythm on amiodarone Recent echo showed ejection fraction 60% with LVH Mild CAD. Heart cath November 30, [address] Wilder showed EDP 40 with 30% ostial left main and mild disease only in the LAD circumflex and right coronary Plan Agree with discharge Medications as outlined I stressed the importance of taking all BP medications daily and not missing doses. Exam (Progress Note) - Constitutional Vitals: Period Temp Pulse Resp BP Sys/Mcintyre Pulse Ox Last 24 Hr 96.7 F-98.8 F 50-86 12-20 127-193/58-78 92-97 Result/EKG - Labs CBC & BMP: 03/29/17 05:29 03/30/17 06:03 Labs: Laboratory Results - last 24 hr 03/29/17 03/29/17 03/30/17 17:07 21:10 06:03 Sodium 140 Potassium 5.0 Chloride 110 H Carbon Dioxide 21 Anion Gap 14.0 BUN 55 H Creatinine 3.80 H GFR Calculation 13 BUN/Creatinine Ratio 14.00 Glucose 134 H POC Glucose 92 114 H Calculated Osmolality 295.4 Calcium 9.1 Magnesium 2.4 Urine Color Urine Appearance Urine pH Ur Specific [place] Urine Protein Urine Glucose (UA) Urine Ketones Urine Blood Urine Nitrate Urine Bilirubin Urine Urobilinogen Urine Leukocytes Urine RBC Urine WBC Urine WBC Clumps Ur Squamous Epith Cells Urine Mucus Ur Culture Indicated? 03/30/17 03/30/17 03/30/17 07:42 11:03 Unknown Sodium Potassium Chloride Carbon Dioxide Anion Gap BUN Creatinine GFR Calculation BUN/Creatinine Ratio Glucose POC Glucose 128 H 153 H Calculated Osmolality Calcium Magnesium Urine Color Yellow Urine Appearance Cloudy Urine pH 5.0 Ur Specific [place] 1.006 Urine Protein 30 Urine Glucose (UA) Negative Urine Ketones Negative Urine Blood Negative Urine Nitrate Negative Urine Bilirubin Negative Urine Urobilinogen < 2.0 H Urine Leukocytes Moderate H Urine RBC 2 Urine WBC 74 Urine WBC Clumps Moderate Ur Squamous Epith Cells Occasional Urine Mucus Occasional Ur Culture Indicated? Results to follow Specialty Discharge - Follow Up or Referrals Follow up with: Monty Cook MD [Physician] - 05/02/17 2:15 pm (appt for outpatient workup for anemia) Shantal Luna DO [Primary Care Provider] - 04/19/17 10:45 am Joce Shaw MD [Physician] - 06/07/17 1:45 pm (keep already scheduled appt. ) Nicola Eugene MD [Physician] - 05/02/17 10:20 am
--- NOTE | 2017-03-30 17:02 | Nephrology Progress Note ---
Nephrology - PN: Subj Interval history: No shortness of breath on room air. No chest pain Exam (PN)-Nephrology - Vital Signs Vital signs: Period Temp Pulse Resp BP Sys/Mcintyre Pulse Ox Last 24 Hr 96.7 F-98.8 F 50-86 12-20 127-193/58-78 92-97 Exam: ENT: Normal Cardiovascular: Regular rate and rhythm. No murmur rub or gallop Lungs: Clear Extremities: Trace edema - Lab 03/29/17 05:29 03/30/17 06:03 Most recent lab results Calcium 9.1 MG/DL (8.5-10.1) 03/30/17 06:03 Magnesium 2.4 MG/DL (1.8-2.4) 03/30/17 06:03 Assessment and Plan (1) Acute on chronic renal failure Status: Resolved Assessment and plan: 77-year-old woman admitted with: * Hypertension. Now controlled * CHF, diastolic. Precipitated by uncontrolled hypertension. This has improved. Diuretic decreased * CRF stage III. Baseline creatinine 2.5 in May 2016 * ARF on CRF. Renal function improving * Diabetes mellitus * COPD Current Visit: No (2) Hypertensive emergency Status: Resolved Current Visit: Yes (3) COPD (chronic obstructive pulmonary disease) Status: Chronic Current Visit: No Qualifiers: COPD type: unspecified COPD Qualified Code(s): J44.9 - Chronic obstructive pulmonary disease, unspecified (4) Type 2 diabetes mellitus Status: Chronic Current Visit: No Qualifiers: Diabetes mellitus complication status: with kidney complications Diabetes mellitus complication detail: with chronic kidney disease Diabetes mellitus mcfp insulin use: without mcfp use Chronic kidney disease stage: stage 3 (moderate) Qualified Code(s): E11.22 - Type 2 diabetes mellitus with diabetic chronic kidney disease; N18.3 - Chronic kidney disease, stage 3 ( moderate) Specialty Discharge - Follow Up or Referrals Follow up with: Monty Cook MD [Physician] - 05/02/17 2:15 pm (appt for outpatient workup for anemia) Shantal Luna DO [Primary Care Provider] - 04/19/17 10:45 am Joce Shaw MD [Physician] - 06/07/17 1:45 pm (keep already scheduled appt. ) Nicola Eugene MD [Physician] - 05/02/17 10:20 am
[2017-03-30 17:24] VITALS: BP 179/75
== END 2017-03-30 18:09 | disposition home or self-care (01) | DRG 291 ==
LOC: N.ED 02:51 → N.EDINP 05:59 → SUATTDRO 05:59 → N.CC 13:51 → N.TELEN 03-27 14:26
PROVIDERS: ADMIT Family Medicine; ATTEND Internal Medicine

== ENCOUNTER 2019-01-11 12:39 | Inpatient (IN) ==
[2019-01-11] MEDS ORDERED: MAGNESIUM HYDROXIDE SUSP 30 ML UDCUP PO PRN (13:14)
[2019-01-11] MEDS ORDERED: ACETAMINOPHEN 325 MG TABLET PO PRN (13:14)
[2019-01-11] MEDS ORDERED: ONDANSETRON 4 MG/2 ML VIAL IV PRN (13:14)
[2019-01-11] MEDS ORDERED: traMADol 50 MG TABLET PO PRN (13:14)
[2019-01-11] MEDS ORDERED: ALBUTEROL/IPRATROPIUM 3 ML NEB RESP TX PRN (13:26)
[2019-01-11 14:59] LABS: Basophils # 0.1 10*3/uL (0.0-0.2); Basophils % 1.7 % (0.0-0.8); Eosinophils # 0.1 10*3/uL (0.0-0.87); Eosinophils % 1.2 % (0.00-10.9); Hematocrit 32.9 VOL% (35.7-47.0); Hemoglobin 10.6 GM/DL (12.0-16.0); Immature Granulocytes % 0.2 %; Immature Granulocytes Absolute 0.01 #; Lymphocytes % 24.8 % (21.3-54.2); Mean Corpuscular HGB Conc 32.2 GM/DL (32-36); Mean Corpuscular Hemoglobin 29 PG (27-34); Mean Corpuscular Volume 90.9 FL (87-102); Mean Platelet Volume 12.4 FL (9.6-12.0); Monocytes # 0.4 10*3/uL (0.11-0.8); Monocytes % 8.6 % (1.7-12.7); Neutrophils # 2.7 10*3/uL (1.4-7.4); Neutrophils % 63.5 % (38.7-73.9); Platelet Count 150 T/CUMM (130-400); Red Blood Count 3.62 MC/CUMM (3.8-5.5); Red Cell Distribution Width 13.2 % (9.3-17.3); White Blood Count 4.2 T/CUMM (4-12)
[2019-01-11] MEDS: SODIUM CHLORIDE 0.9% 1,000 ML IV SCH (15:15)
[2019-01-11] MEDS: niCARdipine INJ 25 MG in SODIUM CHLORIDE 0.9% 240 ML IV PRN ×2 (15:19→20:24)
[2019-01-11 15:26] LABS: Alanine Aminotransferase 12 U/L (13-56); Albumin 3.6 G/DL (3.4-5.0); Alkaline Phosphatase 94 U/L (45-117); Aspartate Amino Transferase 11 U/L (0-37); Bilirubin,Total < 0.39 MG/DL (0.2-1.0); Blood Urea Nitrogen 47 MG/DL (7-18); Calcium 9.3 MG/DL (8.5-10.1); Glucose 135 MG/DL (74-106); Osmolality,Calculated 294.3 MOS/KG (273-304); Potassium 4.9 MMOL/L (3.5-5.1); Sodium 141 MMOL/L (136-145); Total Protein 7.1 G/DL (6.4-8.3)
[2019-01-11] MEDS: PANTOPRAZOLE 40 MG TABLET PO SCH (15:30)
[2019-01-11] MEDS: ENOXAPARIN 30 MG/0.3 ML SYRINGE SUBCUT SCH (15:30)
[2019-01-11] MEDS ORDERED: FUROSEMIDE 40 MG/4 ML VIAL IV ONE (18:48)
[2019-01-11] MEDS ORDERED: DOCUSATE SODIUM 100 MG CAPSULE PO SCH (21:00)
[2019-01-11] MEDS: MEGESTROL 40 MG TABLET PO SCH (22:04)
[2019-01-11] MEDS: SIMVASTATIN 10 MG TABLET PO SCH (22:05)
[2019-01-11] MEDS: DOCUSATE SODIUM 100 MG CAPSULE PO SCH (22:05)
[2019-01-12] MEDS: niCARdipine INJ 25 MG in SODIUM CHLORIDE 0.9% 240 ML IV PRN ×3 (01:24→22:41)
[2019-01-12] MEDS: ALBUTEROL/IPRATROPIUM 3 ML NEB RESP TX SCH ×4 (01:42→20:16)
[2019-01-12] MEDS: SODIUM CHLORIDE 0.9% 1,000 ML IV SCH ×2 (04:54→19:01)
[2019-01-12 06:10] LABS: Osmolality,Calculated 297.8 MOS/KG (273-304); Potassium 4.1 MMOL/L (3.5-5.1)
[2019-01-12] MEDS: FUROSEMIDE 40 MG/4 ML VIAL IV SCH (09:06)
[2019-01-12] MEDS: ALLOPURINOL 100 MG TABLET PO SCH (09:06)
[2019-01-12] MEDS: FAMOTIDINE 20 MG TABLET PO SCH (09:07)
[2019-01-12] MEDS: PANTOPRAZOLE 40 MG TABLET PO SCH (09:07)
[2019-01-12] MEDS: MEGESTROL 40 MG TABLET PO SCH ×2 (09:07→20:25)
[2019-01-12] MEDS: DOCUSATE SODIUM 100 MG CAPSULE PO SCH ×2 (09:07→20:25)
[2019-01-12] MEDS: ASPIRIN EC 81 MG TABLET PO SCH (09:07)
[2019-01-12] MEDS ORDERED: niCARdipine 25 MG/10 ML VIAL IV ONE (10:03)
[2019-01-12] MEDS: ENOXAPARIN 30 MG/0.3 ML SYRINGE SUBCUT SCH (14:27)
[2019-01-12] MEDS: SIMVASTATIN 10 MG TABLET PO SCH (20:25)
[2019-01-12] MEDS ORDERED: AMIODARONE INJ 450 MG in DEXTROSE 5% 241 ML IV SCH (21:30)
[2019-01-12] MEDS ORDERED: niCARdipine INJ 25 MG in SODIUM CHLORIDE 0.9% 240 ML IV PRN (22:06)
[2019-01-13] MEDS: ALBUTEROL/IPRATROPIUM 3 ML NEB RESP TX SCH ×4 (01:01→19:20)
[2019-01-13] MEDS: AMIODARONE INJ 450 MG in DEXTROSE 5% 241 ML IV SCH ×2 (03:28→18:45)
[2019-01-13 05:30] LABS: Calcium 8.9 MG/DL (8.5-10.1); Osmolality,Calculated 295.1 MOS/KG (273-304); Potassium 3.8 MMOL/L (3.5-5.1)
[2019-01-13] MEDS: PANTOPRAZOLE 40 MG TABLET PO SCH (08:21)
[2019-01-13] MEDS: ASPIRIN EC 81 MG TABLET PO SCH (08:21)
[2019-01-13] MEDS: ALLOPURINOL 100 MG TABLET PO SCH (08:21)
[2019-01-13] MEDS: MEGESTROL 40 MG TABLET PO SCH ×2 (08:21→20:25)
[2019-01-13] MEDS: FAMOTIDINE 20 MG TABLET PO SCH (08:21)
[2019-01-13] MEDS: SODIUM CHLORIDE 0.9% 1,000 ML IV SCH (08:22)
[2019-01-13] MEDS: DOCUSATE SODIUM 100 MG CAPSULE PO SCH ×2 (08:22→20:25)
[2019-01-13] MEDS: FUROSEMIDE 40 MG/4 ML VIAL IV SCH (08:22)
[2019-01-13] MEDS: APIXABAN 2.5 MG TABLET PO SCH ×2 (11:30→20:25)
[2019-01-13] MEDS: AMIODARONE 200 MG TABLET PO SCH (20:25)
[2019-01-13] MEDS: SIMVASTATIN 10 MG TABLET PO SCH (20:25)
[2019-01-13] MEDS: METOPROLOL TARTRATE 25 MG TABLET PO SCH (21:43)
[2019-01-14] MEDS: ALBUTEROL/IPRATROPIUM 3 ML NEB RESP TX SCH ×4 (00:48→20:10)
[2019-01-14 06:14] LABS: Calcium 9.6 MG/DL (8.5-10.1); Osmolality,Calculated 294.3 MOS/KG (273-304); Potassium 4.3 MMOL/L (3.5-5.1)
[2019-01-14] MEDS: PANTOPRAZOLE 40 MG TABLET PO SCH (08:27)
[2019-01-14] MEDS: SODIUM BICARBONATE 650 MG TABLET PO SCH ×3 (08:27→20:12)
[2019-01-14] MEDS: MEGESTROL 40 MG TABLET PO SCH ×2 (08:27→20:11)
[2019-01-14] MEDS: DOCUSATE SODIUM 100 MG CAPSULE PO SCH ×2 (08:27→20:12)
[2019-01-14] MEDS: ASPIRIN EC 81 MG TABLET PO SCH (08:27)
[2019-01-14] MEDS: FAMOTIDINE 20 MG TABLET PO SCH (08:28)
[2019-01-14] MEDS: METOPROLOL TARTRATE 25 MG TABLET PO SCH ×2 (08:28→20:12)
[2019-01-14] MEDS: AMIODARONE 200 MG TABLET PO SCH ×2 (08:28→20:12)
[2019-01-14] MEDS: FUROSEMIDE 40 MG/4 ML VIAL IV SCH (08:28)
[2019-01-14] MEDS: APIXABAN 2.5 MG TABLET PO SCH ×2 (08:28→20:11)
[2019-01-14] MEDS: ALLOPURINOL 100 MG TABLET PO SCH (08:28)
[2019-01-14] MEDS: SIMVASTATIN 10 MG TABLET PO SCH (20:11)
[2019-01-14] MEDS: niCARdipine INJ 25 MG in SODIUM CHLORIDE 0.9% 240 ML IV PRN (21:42)
[2019-01-15] MEDS: ALBUTEROL/IPRATROPIUM 3 ML NEB RESP TX SCH ×4 (01:00→19:30)
[2019-01-15] MEDS: niCARdipine INJ 25 MG in SODIUM CHLORIDE 0.9% 240 ML IV PRN ×3 (02:21→09:42)
[2019-01-15] MEDS ORDERED: HALOPERIDOL 5 MG/ML AMP IV PRN (04:01)
[2019-01-15 07:38] LABS: Calcium 9.7 MG/DL (8.5-10.1); Osmolality,Calculated 295.3 MOS/KG (273-304); Potassium 4.1 MMOL/L (3.5-5.1)
[2019-01-15] MEDS: FAMOTIDINE 20 MG TABLET PO SCH (07:58)
[2019-01-15] MEDS: ASPIRIN EC 81 MG TABLET PO SCH (09:23)
[2019-01-15] MEDS: APIXABAN 2.5 MG TABLET PO SCH ×2 (09:24→20:13)
[2019-01-15] MEDS: DOCUSATE SODIUM 100 MG CAPSULE PO SCH ×2 (09:24→20:12)
[2019-01-15] MEDS: AMIODARONE 200 MG TABLET PO SCH ×2 (09:24→20:13)
[2019-01-15] MEDS: METOPROLOL TARTRATE 25 MG TABLET PO SCH (09:25)
[2019-01-15] MEDS: MEGESTROL 40 MG TABLET PO SCH ×2 (09:25→20:14)
[2019-01-15] MEDS: SODIUM BICARBONATE 650 MG TABLET PO SCH ×3 (09:26→20:12)
[2019-01-15] MEDS: PANTOPRAZOLE 40 MG TABLET PO SCH (09:26)
[2019-01-15] MEDS: ALLOPURINOL 100 MG TABLET PO SCH (09:28)
[2019-01-15] MEDS: FUROSEMIDE 40 MG/4 ML VIAL IV SCH (09:29)
[2019-01-15 11:01] LABS: Basophils # 0.1 10*3/uL (0.0-0.2); Basophils % 0.7 % (0.0-0.8); Hematocrit 33.1 VOL% (35.7-47.0); Hemoglobin 10.9 GM/DL (12.0-16.0); Immature Granulocytes % 0.6 %; Immature Granulocytes Absolute 0.05 #; Lymphocytes # 0.7 10*3/uL (1.4-4.0); Mean Corpuscular HGB Conc 32.9 GM/DL (32-36); Mean Corpuscular Hemoglobin 29 PG (27-34); Mean Platelet Volume 13.1 FL (9.6-12.0); Monocytes # 0.8 10*3/uL (0.11-0.8); Monocytes % 9.6 % (1.7-12.7); Neutrophils # 6.9 10*3/uL (1.4-7.4); Neutrophils % 81.1 % (38.7-73.9); Platelet Count 179 T/CUMM (130-400); Red Blood Count 3.72 MC/CUMM (3.8-5.5); Red Cell Distribution Width 13.6 % (9.3-17.3); White Blood Count 8.6 T/CUMM (4-12)
[2019-01-15] MEDS: DOXAZOSIN 1 MG TABLET PO SCH ×2 (12:38→21:30)
[2019-01-15] MEDS: SIMVASTATIN 10 MG TABLET PO SCH (20:14)
[2019-01-15] MEDS: METOPROLOL TARTRATE 50 MG TABLET PO SCH (21:30)
[2019-01-16] MEDS: ALBUTEROL/IPRATROPIUM 3 ML NEB RESP TX SCH ×4 (00:55→19:38)
[2019-01-16 05:55] LABS: Basophils % 0.4 % (0.0-0.8); Eosinophils % 0.1 % (0.00-10.9); Hematocrit 30.2 VOL% (35.7-47.0); Hemoglobin 9.8 GM/DL (12.0-16.0); Immature Granulocytes % 0.5 %; Immature Granulocytes Absolute 0.04 #; Lymphocytes # 0.6 10*3/uL (1.4-4.0); Lymphocytes % 7.5 % (21.3-54.2); Mean Corpuscular HGB Conc 32.5 GM/DL (32-36); Mean Corpuscular Hemoglobin 29 PG (27-34); Mean Corpuscular Volume 89.6 FL (87-102); Mean Platelet Volume 12.8 FL (9.6-12.0); Monocytes # 0.9 10*3/uL (0.11-0.8); Neutrophils # 6.2 10*3/uL (1.4-7.4); Neutrophils % 80.5 % (38.7-73.9); Platelet Count 156 T/CUMM (130-400); Red Blood Count 3.37 MC/CUMM (3.8-5.5); Red Cell Distribution Width 13.6 % (9.3-17.3); White Blood Count 7.8 T/CUMM (4-12)
[2019-01-16 06:01] LABS: Calcium 9.3 MG/DL (8.5-10.1); Osmolality,Calculated 294.5 MOS/KG (273-304)
[2019-01-16 06:37] LABS: Apearance,Urine CLOUDY (Clear); Bilirubin,Urine Negative (Negative); Blood, Urine Negative (Negative); Glucose,Urine (UA) Negative (Negative); Ketones,Urine Negative (Negative); Nitrite,Urine Negative (Negative); Protein,Urine 100 MG/DL; RBC,Urine 9 /HPF (0-4); Squamous Epithelial Cell,Urine Occasional /HPF (0-10); Urine Color Yellow (Yellow); Urine Specific Gravity 1.009 (1.001-1.035); Urine Urobilinogen < 2.0 EU/DL (0.2-1.0); WBC,Urine 26 /HPF (0-6)
[2019-01-16] MEDS: FAMOTIDINE 20 MG TABLET PO SCH (08:14)
[2019-01-16] MEDS: PANTOPRAZOLE 40 MG TABLET PO SCH (09:10)
[2019-01-16] MEDS: DOXAZOSIN 1 MG TABLET PO SCH ×2 (09:10→21:39)
[2019-01-16] MEDS: DOCUSATE SODIUM 100 MG CAPSULE PO SCH ×2 (09:11→21:39)
[2019-01-16] MEDS: MEGESTROL 40 MG TABLET PO SCH ×2 (09:11→21:39)
[2019-01-16] MEDS: ALLOPURINOL 100 MG TABLET PO SCH (09:11)
[2019-01-16] MEDS: APIXABAN 2.5 MG TABLET PO SCH ×2 (09:11→21:39)
[2019-01-16] MEDS: METOPROLOL TARTRATE 50 MG TABLET PO SCH (09:12)
[2019-01-16] MEDS: AMIODARONE 200 MG TABLET PO SCH ×2 (09:12→21:39)
[2019-01-16] MEDS: SODIUM BICARBONATE 650 MG TABLET PO SCH ×3 (09:12→21:39)
[2019-01-16] MEDS: ASPIRIN EC 81 MG TABLET PO SCH (09:13)
[2019-01-16] MEDS: FUROSEMIDE 40 MG/4 ML VIAL IV SCH (09:16)
[2019-01-16] MEDS: methylPREDNISolone SOD SUC 40 MG/1 ML VIAL IV SCH ×2 (12:47→18:31)
[2019-01-16] MEDS: SIMVASTATIN 10 MG TABLET PO SCH (21:39)
[2019-01-16] MEDS: METOPROLOL TARTRATE 25 MG TABLET PO SCH (21:44)
[2019-01-17] MEDS: ALBUTEROL/IPRATROPIUM 3 ML NEB RESP TX SCH ×3 (01:08→13:07)
[2019-01-17] MEDS: methylPREDNISolone SOD SUC 40 MG/1 ML VIAL IV SCH ×2 (03:38→13:43)
[2019-01-17 05:43] LABS: Basophils % 0.1 % (0.0-0.8); Hematocrit 28.6 VOL% (35.7-47.0); Hemoglobin 9.5 GM/DL (12.0-16.0); Immature Granulocytes % 0.7 %; Immature Granulocytes Absolute 0.05 #; Lymphocytes # 0.3 10*3/uL (1.4-4.0); Lymphocytes % 4.7 % (21.3-54.2); Mean Corpuscular HGB Conc 33.2 GM/DL (32-36); Mean Corpuscular Hemoglobin 29 PG (27-34); Mean Corpuscular Volume 88.3 FL (87-102); Monocytes # 0.5 10*3/uL (0.11-0.8); Neutrophils % 87.5 % (38.7-73.9); Platelet Count 171 T/CUMM (130-400); Red Blood Count 3.24 MC/CUMM (3.8-5.5); Red Cell Distribution Width 13.2 % (9.3-17.3); White Blood Count 6.8 T/CUMM (4-12)
[2019-01-17 06:10] LABS: Calcium 9.2 MG/DL (8.5-10.1); Osmolality,Calculated 296.8 MOS/KG (273-304); Potassium 4.6 MMOL/L (3.5-5.1)
[2019-01-17 06:30] LABS: Hypochromasia 1+; Lymphocytes 2 % (20-55); Microcytosis 1+; Segmented Neutrophils 93 % (50-85); Target Cells Slight; Total Cells Counted 100
[2019-01-17 06:31] LABS: Platelet Estimate Adequate
[2019-01-17] MEDS: DOXAZOSIN 1 MG TABLET PO SCH (09:40)
[2019-01-17] MEDS: SODIUM BICARBONATE 650 MG TABLET PO SCH ×2 (09:40→17:12)
[2019-01-17] MEDS: METOPROLOL TARTRATE 25 MG TABLET PO SCH (09:41)
[2019-01-17] MEDS: MEGESTROL 40 MG TABLET PO SCH (09:41)
[2019-01-17] MEDS: FAMOTIDINE 20 MG TABLET PO SCH (09:41)
[2019-01-17] MEDS: ALLOPURINOL 100 MG TABLET PO SCH (09:41)
[2019-01-17] MEDS: DOCUSATE SODIUM 100 MG CAPSULE PO SCH (09:41)
[2019-01-17] MEDS: AMIODARONE 200 MG TABLET PO SCH (09:41)
[2019-01-17] MEDS: APIXABAN 2.5 MG TABLET PO SCH (09:41)
[2019-01-17] MEDS: FUROSEMIDE 40 MG/4 ML VIAL IV SCH (09:42)
[2019-01-17] MEDS: ASPIRIN EC 81 MG TABLET PO SCH (09:42)
[2019-01-17] MEDS: PANTOPRAZOLE 40 MG TABLET PO SCH (13:13)
[2019-01-17 16:22] VITALS: BP 144/58
[2019-01-18] MEDS ORDERED: FUROSEMIDE 40 MG TABLET PO SCH (09:00)
== END 2019-01-17 18:32 | disposition home health service (06) | DRG 291 ==
LOC: N.CC 13:43 → N.4E 01-16 20:16
PROVIDERS: ADMIT Internal Medicine; ATTEND Internal Medicine

== ENCOUNTER 2019-01-29 16:58 | Inpatient (IN) ==
[2019-01-29 17:40] LABS: Basophils # 0.1 10*3/uL (0.0-0.2); Basophils % 0.8 % (0.0-0.8); Eosinophils # 0.1 10*3/uL (0.0-0.87); Eosinophils % 0.8 % (0.00-10.9); Hematocrit 31.4 VOL% (35.7-47.0); Hemoglobin 9.9 GM/DL (12.0-16.0); Immature Granulocytes % 0.6 %; Immature Granulocytes Absolute 0.05 #; Lymphocytes # 1.4 10*3/uL (1.4-4.0); Mean Corpuscular HGB Conc 31.5 GM/DL (32-36); Mean Corpuscular Hemoglobin 29 PG (27-34); Mean Corpuscular Volume 90.5 FL (87-102); Mean Platelet Volume 11.8 FL (9.6-12.0); Monocytes # 0.6 10*3/uL (0.11-0.8); Monocytes % 6.1 % (1.7-12.7); Neutrophils # 6.8 10*3/uL (1.4-7.4); Neutrophils % 75.7 % (38.7-73.9); Platelet Count 276 T/CUMM (130-400); Red Blood Count 3.47 MC/CUMM (3.8-5.5); Red Cell Distribution Width 13.5 % (9.3-17.3)
[2019-01-29 18:02] LABS: Albumin 3.7 G/DL (3.4-5.0); Bilirubin,Total 0.5 MG/DL (0.2-1.0); Osmolality,Calculated 300.7 MOS/KG (273-304); Total Protein 7.1 G/DL (6.4-8.3)
[2019-01-29] MEDS ORDERED: NITROGLYCERIN 2% OINT 1 INCH/GM PACK TOP STA (18:57)
[2019-01-29] MEDS ORDERED: FUROSEMIDE 40 MG/4 ML VIAL IV STA (18:57)
[2019-01-29] MEDS ORDERED: ONDANSETRON 4 MG/2 ML VIAL IV STA (18:57)
[2019-01-29] MEDS ORDERED: ASPIRIN 325 MG TABLET PO STA (18:57)
[2019-01-29] MEDS ORDERED: MORPHINE 4 MG/1 ML VIAL IV STA (18:57)
[2019-01-29] MEDS ORDERED: hydrALAZINE 20 MG/1 ML VIAL IV ONE (20:19)
[2019-01-29] MEDS ORDERED: ACETAMINOPHEN 325 MG TABLET PO PRN (23:17)
[2019-01-29] MEDS ORDERED: ONDANSETRON 4 MG/2 ML VIAL IV PRN (23:17)
[2019-01-29] MEDS ORDERED: GLUCAGON 1 MG VIAL IM PRN (23:17)
[2019-01-29] MEDS ORDERED: DEXTROSE 50% 25 GM/50 ML SYRINGE IV PRN (23:17)
[2019-01-29] MEDS ORDERED: SODIUM CHLORIDE 0.9% 1,000 ML IV SCH (23:17)
[2019-01-29] MEDS ORDERED: MORPHINE 4 MG/1 ML VIAL IV PRN (23:17)
[2019-01-30] MEDS: INSULIN REGULAR 100 UNIT/ML SUBCUT SCH ×4 (00:23→17:44)
[2019-01-30] MEDS: DOCUSATE SODIUM 100 MG CAPSULE PO SCH ×3 (00:42→21:37)
[2019-01-30] MEDS: NITROGLYCERIN 2% OINT 1 INCH/GM PACK TOP SCH ×4 (02:00→17:58)
[2019-01-30] MEDS: ALBUTEROL/IPRATROPIUM 3 ML NEB RESP TX SCH ×6 (02:54→22:49)
[2019-01-30 05:07] LABS: Albumin 2.9 G/DL (3.4-5.0); Bilirubin,Total 0.7 MG/DL (0.2-1.0); Calcium 8.6 MG/DL (8.5-10.1); Osmolality,Calculated 297.8 MOS/KG (273-304); Potassium 3.7 MMOL/L (3.5-5.1); Total Protein 6.3 G/DL (6.4-8.3)
[2019-01-30 06:27] LABS: Basophils # 0.1 10*3/uL (0.0-0.2); Eosinophils % 0.7 % (0.00-10.9); Hematocrit 26.2 VOL% (35.7-47.0); Hemoglobin 8.3 GM/DL (12.0-16.0); Immature Granulocytes % 0.3 %; Immature Granulocytes Absolute 0.02 #; Lymphocytes # 0.8 10*3/uL (1.4-4.0); Lymphocytes % 13.7 % (21.3-54.2); Mean Corpuscular HGB Conc 31.7 GM/DL (32-36); Mean Corpuscular Hemoglobin 29 PG (27-34); Mean Corpuscular Volume 91.9 FL (87-102); Mean Platelet Volume 12.3 FL (9.6-12.0); Monocytes # 0.4 10*3/uL (0.11-0.8); Monocytes % 6.7 % (1.7-12.7); Neutrophils # 4.6 10*3/uL (1.4-7.4); Neutrophils % 77.6 % (38.7-73.9); Platelet Count 206 T/CUMM (130-400); Red Blood Count 2.85 MC/CUMM (3.8-5.5); Red Cell Distribution Width 13.9 % (9.3-17.3); White Blood Count 5.9 T/CUMM (4-12)
[2019-01-30] MEDS ORDERED: ALBUTEROL 2.5 MG/3 ML NEB RESP TX PRN (08:30)
[2019-01-30] MEDS: APIXABAN 2.5 MG TABLET PO SCH ×2 (10:21→21:37)
[2019-01-30] MEDS: DOXAZOSIN 4 MG TABLET PO SCH (10:21)
[2019-01-30] MEDS: PANTOPRAZOLE 40 MG TABLET PO SCH (10:21)
[2019-01-30] MEDS: SODIUM BICARBONATE 650 MG TABLET PO SCH ×3 (10:22→21:37)
[2019-01-30] MEDS: MEGESTROL 40 MG TABLET PO SCH ×2 (10:22→21:37)
[2019-01-30] MEDS: FAMOTIDINE 20 MG TABLET PO SCH (10:22)
[2019-01-30] MEDS: ASPIRIN EC 81 MG TABLET PO SCH (10:22)
[2019-01-30] MEDS: ALLOPURINOL 100 MG TABLET PO SCH (10:22)
[2019-01-30] MEDS: AMIODARONE 200 MG TABLET PO SCH (10:22)
[2019-01-30] MEDS: FUROSEMIDE 40 MG/4 ML VIAL IV SCH ×2 (12:26→21:37)
[2019-01-30] MEDS ORDERED: MAGNESIUM SULF RIDER 2 GM in PREMIX 1 EACH IV ONE (13:21)
[2019-01-30] MEDS: METOPROLOL TARTRATE 25 MG TABLET PO SCH (16:54)
[2019-01-30] MEDS: SIMVASTATIN 10 MG TABLET PO SCH (21:37)
[2019-01-31] MEDS: NITROGLYCERIN 2% OINT 1 INCH/GM PACK TOP SCH ×4 (00:52→18:33)
[2019-01-31] MEDS: INSULIN REGULAR 100 UNIT/ML SUBCUT SCH ×4 (00:53→18:00)
[2019-01-31] MEDS: ALBUTEROL/IPRATROPIUM 3 ML NEB RESP TX SCH ×6 (03:02→20:07)
[2019-01-31 04:14] LABS: Basophils % 0.6 % (0.0-0.8); Eosinophils % 0.5 % (0.00-10.9); Hematocrit 22.1 VOL% (35.7-47.0); Immature Granulocytes % 0.3 %; Immature Granulocytes Absolute 0.02 #; Lymphocytes # 0.7 10*3/uL (1.4-4.0); Lymphocytes % 11.7 % (21.3-54.2); Mean Corpuscular HGB Conc 31.7 GM/DL (32-36); Mean Corpuscular Hemoglobin 29 PG (27-34); Mean Corpuscular Volume 90.6 FL (87-102); Mean Platelet Volume 12.2 FL (9.6-12.0); Monocytes # 0.4 10*3/uL (0.11-0.8); Monocytes % 6.3 % (1.7-12.7); Neutrophils # 5.1 10*3/uL (1.4-7.4); Neutrophils % 80.6 % (38.7-73.9); Platelet Count 169 T/CUMM (130-400); Red Blood Count 2.44 MC/CUMM (3.8-5.5); Red Cell Distribution Width 14.1 % (9.3-17.3); White Blood Count 6.3 T/CUMM (4-12)
[2019-01-31 04:34] LABS: Calcium 8.1 MG/DL (8.5-10.1); Osmolality,Calculated 297.1 MOS/KG (273-304); Potassium 3.8 MMOL/L (3.5-5.1)
[2019-01-31] MEDS ORDERED: SODIUM CHLORIDE 0.9% 1,000 ML IV PRN (06:37)
[2019-01-31] MEDS: ASPIRIN EC 81 MG TABLET PO SCH (10:00)
[2019-01-31] MEDS: DOXAZOSIN 4 MG TABLET PO SCH (10:00)
[2019-01-31] MEDS: SODIUM BICARBONATE 650 MG TABLET PO SCH ×3 (10:01→21:19)
[2019-01-31] MEDS: PANTOPRAZOLE 40 MG TABLET PO SCH (10:01)
[2019-01-31] MEDS: MEGESTROL 40 MG TABLET PO SCH ×2 (10:01→21:18)
[2019-01-31] MEDS: AMIODARONE 200 MG TABLET PO SCH (10:01)
[2019-01-31] MEDS: ALLOPURINOL 100 MG TABLET PO SCH (10:02)
[2019-01-31] MEDS: DOCUSATE SODIUM 100 MG CAPSULE PO SCH ×2 (10:02→21:18)
[2019-01-31] MEDS: FAMOTIDINE 20 MG TABLET PO SCH (10:40)
[2019-01-31] MEDS: FUROSEMIDE 40 MG/4 ML VIAL IV SCH (11:39)
[2019-01-31] MEDS: METOPROLOL TARTRATE 25 MG TABLET PO SCH (18:33)
[2019-01-31] MEDS: SIMVASTATIN 10 MG TABLET PO SCH (21:19)
[2019-02-01] MEDS: ALBUTEROL/IPRATROPIUM 3 ML NEB RESP TX SCH ×6 (00:35→19:56)
[2019-02-01] MEDS: NITROGLYCERIN 2% OINT 1 INCH/GM PACK TOP SCH ×5 (04:58→23:54)
[2019-02-01] MEDS: INSULIN REGULAR 100 UNIT/ML SUBCUT SCH ×5 (05:06→20:45)
[2019-02-01 05:33] LABS: Calcium 8.2 MG/DL (8.5-10.1); Osmolality,Calculated 294.4 MOS/KG (273-304); Potassium 3.9 MMOL/L (3.5-5.1)
[2019-02-01 05:34] LABS: Basophils % 0.6 % (0.0-0.8); Eosinophils # 0.1 10*3/uL (0.0-0.87); Eosinophils % 0.9 % (0.00-10.9); Hematocrit 29.5 VOL% (35.7-47.0); Hemoglobin 9.7 GM/DL (12.0-16.0); Immature Granulocytes % 0.2 %; Immature Granulocytes Absolute 0.01 #; Lymphocytes # 0.9 10*3/uL (1.4-4.0); Lymphocytes % 12.9 % (21.3-54.2); Mean Corpuscular HGB Conc 32.9 GM/DL (32-36); Mean Corpuscular Hemoglobin 30 PG (27-34); Mean Corpuscular Volume 89.9 FL (87-102); Mean Platelet Volume 12.5 FL (9.6-12.0); Monocytes # 0.5 10*3/uL (0.11-0.8); Monocytes % 7.5 % (1.7-12.7); Neutrophils # 5.1 10*3/uL (1.4-7.4); Neutrophils % 77.9 % (38.7-73.9); Platelet Count 156 T/CUMM (130-400); Red Blood Count 3.28 MC/CUMM (3.8-5.5); Red Cell Distribution Width 13.6 % (9.3-17.3); White Blood Count 6.6 T/CUMM (4-12)
[2019-02-01] MEDS ORDERED: POTASSIUM CHLORIDE 10 MEQ TABLET PO ONE (07:33)
[2019-02-01] MEDS: FAMOTIDINE 20 MG TABLET PO SCH (08:25)
[2019-02-01] MEDS: SODIUM BICARBONATE 650 MG TABLET PO SCH ×3 (08:26→20:44)
[2019-02-01] MEDS: DOXAZOSIN 4 MG TABLET PO SCH (08:27)
[2019-02-01] MEDS: FUROSEMIDE 40 MG TABLET PO SCH (08:28)
[2019-02-01] MEDS: AMIODARONE 200 MG TABLET PO SCH (08:28)
[2019-02-01] MEDS: MEGESTROL 40 MG TABLET PO SCH ×2 (08:29→20:45)
[2019-02-01] MEDS: ASPIRIN EC 81 MG TABLET PO SCH (08:30)
[2019-02-01] MEDS: PANTOPRAZOLE 40 MG TABLET PO SCH (08:30)
[2019-02-01] MEDS: DOCUSATE SODIUM 100 MG CAPSULE PO SCH ×2 (08:31→20:45)
[2019-02-01] MEDS: ALLOPURINOL 100 MG TABLET PO SCH (08:31)
[2019-02-01] MEDS: SIMVASTATIN 10 MG TABLET PO SCH (20:45)
[2019-02-02] MEDS: ALBUTEROL/IPRATROPIUM 3 ML NEB RESP TX SCH ×7 (00:09→23:56)
[2019-02-02 04:46] LABS: Basophils % 0.8 % (0.0-0.8); Eosinophils % 0.6 % (0.00-10.9); Hematocrit 28.6 VOL% (35.7-47.0); Hemoglobin 9.3 GM/DL (12.0-16.0); Immature Granulocytes % 0.6 %; Immature Granulocytes Absolute 0.03 #; Lymphocytes # 0.7 10*3/uL (1.4-4.0); Lymphocytes % 12.6 % (21.3-54.2); Mean Corpuscular HGB Conc 32.5 GM/DL (32-36); Mean Corpuscular Hemoglobin 29 PG (27-34); Mean Corpuscular Volume 90.5 FL (87-102); Monocytes # 0.6 10*3/uL (0.11-0.8); Monocytes % 10.4 % (1.7-12.7); Platelet Count 141 T/CUMM (130-400); Red Blood Count 3.16 MC/CUMM (3.8-5.5); Red Cell Distribution Width 14.1 % (9.3-17.3); White Blood Count 5.3 T/CUMM (4-12)
[2019-02-02 04:56] LABS: PT Patient Result 10.9 SECS
[2019-02-02 05:01] LABS: Calcium 8.4 MG/DL (8.5-10.1); Osmolality,Calculated 298.8 MOS/KG (273-304); Potassium 3.8 MMOL/L (3.5-5.1)
[2019-02-02] MEDS: NITROGLYCERIN 2% OINT 1 INCH/GM PACK TOP SCH ×3 (05:34→18:16)
[2019-02-02] MEDS ORDERED: SODIUM CHLORIDE 0.9% 1,000 ML IV SCH (07:30)
[2019-02-02] MEDS: INSULIN REGULAR 100 UNIT/ML SUBCUT SCH ×4 (09:18→20:42)
[2019-02-02] MEDS ORDERED: DIAZEPAM 5 MG TABLET ONE (11:31)
[2019-02-02] MEDS ORDERED: diphenhydrAMINE CAP 50 MG CAPSULE ONE (11:31)
[2019-02-02] MEDS ORDERED: diphenhydrAMINE CAP 25 MG CAPSULE PO ONE (12:00)
[2019-02-02] MEDS ORDERED: ceFAZolin 1,000 MG VIAL IRRIG ONE (12:00)
[2019-02-02] MEDS ORDERED: DIAZEPAM 5 MG TABLET PO ONE (12:00)
[2019-02-02] MEDS ORDERED: ceFAZolin 1,000 MG in SYRINGE 1 EACH IV ONE (12:00)
[2019-02-02] MEDS ORDERED: fentaNYL 100 MCG/2 ML VIAL IV ONE (13:22)
[2019-02-02] MEDS ORDERED: MIDAZOLAM 2 MG/2 ML VIAL IV ONE (13:22)
[2019-02-02] MEDS ORDERED: TISSUE ADHESIVE 1 EACH APPLICATOR TOP ONE (13:22)
[2019-02-02] MEDS ORDERED: LIDOCAINE 1% 20 ML VIAL MISC INJ ONE (13:22)
[2019-02-02] MEDS ORDERED: ceFAZolin 1,000 MG VIAL IV ONE (13:22)
[2019-02-02] MEDS: FAMOTIDINE 20 MG TABLET PO SCH (14:10)
[2019-02-02] MEDS: MEGESTROL 40 MG TABLET PO SCH ×2 (14:10→20:42)
[2019-02-02] MEDS: ALLOPURINOL 100 MG TABLET PO SCH (14:10)
[2019-02-02] MEDS: ASPIRIN EC 81 MG TABLET PO SCH (14:11)
[2019-02-02] MEDS: SODIUM BICARBONATE 650 MG TABLET PO SCH ×3 (14:11→20:42)
[2019-02-02] MEDS: AMIODARONE 200 MG TABLET PO SCH (14:11)
[2019-02-02] MEDS: FUROSEMIDE 40 MG TABLET PO SCH (14:11)
[2019-02-02] MEDS: DOCUSATE SODIUM 100 MG CAPSULE PO SCH ×2 (14:11→20:42)
[2019-02-02] MEDS: PANTOPRAZOLE 40 MG TABLET PO SCH (14:11)
[2019-02-02] MEDS: DOXAZOSIN 4 MG TABLET PO SCH (14:11)
[2019-02-02] MEDS: methylPREDNISolone SOD SUC 40 MG/1 ML VIAL IV SCH (16:45)
[2019-02-02] MEDS: SIMVASTATIN 10 MG TABLET PO SCH (20:42)
[2019-02-03] MEDS: NITROGLYCERIN 2% OINT 1 INCH/GM PACK TOP SCH ×3 (00:39→18:27)
[2019-02-03] MEDS: ALBUTEROL/IPRATROPIUM 3 ML NEB RESP TX SCH ×4 (03:51→18:27)
[2019-02-03] MEDS: methylPREDNISolone SOD SUC 40 MG/1 ML VIAL IV SCH ×2 (04:10→19:21)
[2019-02-03 04:40] LABS: Basophils % 0.3 % (0.0-0.8); Hematocrit 31.8 VOL% (35.7-47.0); Hemoglobin 10.2 GM/DL (12.0-16.0); Immature Granulocytes % 0.3 %; Immature Granulocytes Absolute 0.02 #; Lymphocytes # 0.3 10*3/uL (1.4-4.0); Lymphocytes % 3.5 % (21.3-54.2); Mean Corpuscular HGB Conc 32.1 GM/DL (32-36); Mean Corpuscular Hemoglobin 29 PG (27-34); Mean Corpuscular Volume 91.4 FL (87-102); Mean Platelet Volume 12.5 FL (9.6-12.0); Monocytes # 0.3 10*3/uL (0.11-0.8); Monocytes % 3.5 % (1.7-12.7); Neutrophils # 7.3 10*3/uL (1.4-7.4); Neutrophils % 92.4 % (38.7-73.9); Platelet Count 151 T/CUMM (130-400); Red Blood Count 3.48 MC/CUMM (3.8-5.5); Red Cell Distribution Width 14.3 % (9.3-17.3); White Blood Count 7.9 T/CUMM (4-12)
[2019-02-03 05:02] LABS: Osmolality,Calculated 299.1 MOS/KG (273-304); Potassium 4.4 MMOL/L (3.5-5.1)
[2019-02-03 05:11] LABS: Hypochromasia Slight; Lymphocytes 2 % (20-55); Platelet Estimate Decreased; Segmented Neutrophils 95 % (50-85); Total Cells Counted 100
[2019-02-03] MEDS: INSULIN REGULAR 100 UNIT/ML SUBCUT SCH ×2 (08:33→18:27)
[2019-02-03] MEDS ORDERED: MAGNESIUM HYDROXIDE SUSP 30 ML UDCUP PO PRN (08:58)
[2019-02-03] MEDS: SODIUM BICARBONATE 650 MG TABLET PO SCH ×2 (08:59→19:22)
[2019-02-03] MEDS: AMIODARONE 200 MG TABLET PO SCH (09:01)
[2019-02-03] MEDS: FAMOTIDINE 20 MG TABLET PO SCH (09:01)
[2019-02-03] MEDS: ASPIRIN EC 81 MG TABLET PO SCH (09:01)
[2019-02-03] MEDS: DOXAZOSIN 4 MG TABLET PO SCH (09:01)
[2019-02-03] MEDS: DOCUSATE SODIUM 100 MG CAPSULE PO SCH (09:01)
[2019-02-03] MEDS: ALLOPURINOL 100 MG TABLET PO SCH (09:02)
[2019-02-03] MEDS: PANTOPRAZOLE 40 MG TABLET PO SCH (09:02)
[2019-02-03] MEDS: MEGESTROL 40 MG TABLET PO SCH (09:02)
[2019-02-03] MEDS: FUROSEMIDE 40 MG TABLET PO SCH (09:02)
[2019-02-03 16:50] VITALS: BP 134/63
== END 2019-02-03 18:16 | disposition home health service (06) | DRG 242 ==
LOC: N.ED 16:58 → N.EDINP 19:12 → N.TELEN 19:49
PROVIDERS: ADMIT Internal Medicine; ATTEND Internal Medicine

== ENCOUNTER 2021-09-23 11:49 | Observation (INO) ==
[2021-09-23] MEDS ORDERED: ONDANSETRON 4 MG/2 ML VIAL IV STA (12:20)
[2021-09-23] MEDS ORDERED: HYDROmorphone 2 MG/1 ML VIAL IV STA (12:20)
[2021-09-23] MEDS ORDERED: HEPARIN LOCK FLUSH 500 UNIT/5 ML SYRINGE IV ONE (12:44)
[2021-09-23] MEDS ORDERED: HEPARIN 10,000 UNIT/10 ML VIAL IV SCH (13:15)
[2021-09-23 13:18] LABS: Basophils % 0.2 % (0.0-0.8); Hematocrit 31.9 VOL% (35.7-47.0); Hemoglobin 10.4 GM/DL (12.0-16.0); Immature Granulocytes % 0.6 %; Immature Granulocytes Absolute 0.11 #; Lymphocytes # 0.4 10*3/uL (1.4-4.0); Mean Corpuscular HGB Conc 32.6 GM/DL (32-36); Mean Corpuscular Volume 88.9 FL (87-102); Mean Platelet Volume 12.1 FL (9.6-12.0); NRBC # 0.03 10*3/uL; Neutrophils % 92.2 % (38.7-73.9); Platelet Count 155 T/CUMM (130-400); Red Blood Count 3.59 MC/CUMM (3.8-5.5); Red Cell Distribution Width 13.5 % (9.3-17.3); White Blood Count 17.3 T/CUMM (4-12)
[2021-09-23 13:43] LABS: Anisocytosis 1+; Band Neutrophils 22 % (0-10); Basophilic Stippling Slight; Metamyelocytes 2 %; Platelet Estimate Normal; Segmented Neutrophils 70 % (50-85); Total Cells Counted 100
[2021-09-23 13:44] LABS: Macrocytosis 1+
[2021-09-23 14:36] LABS: Albumin 3.7 G/DL (3.4-5.0); Bilirubin,Total 1.4 MG/DL (0.20-1.00); Calcium 9.7 MG/DL (8.5-10.1); Osmolality,Calculated 275.1 MOS/KG (273-304); Total Protein 6.8 G/DL (6.4-8.2)
[2021-09-23] MEDS ORDERED: POTASSIUM CHLORIDE RIDER 10 MEQ/100 ML PREMIX IV ONE (15:04)
[2021-09-23] MEDS ORDERED: metroNIDAZOLE INJ 500 MG/100 ML PREMIX IV STA (15:06)
[2021-09-23] MEDS ORDERED: LEVOFLOXACIN INJ 750 MG in PREMIX 1 EACH IV STA (15:06)
[2021-09-23] MEDS ORDERED: ONDANSETRON 4 MG/2 ML VIAL IV PRN ×2 (15:58→18:30)
[2021-09-23] MEDS ORDERED: MORPHINE 2 MG/1 ML SYRINGE IV PRN ×2 (15:58)
[2021-09-23] MEDS ORDERED: POTASSIUM CHLORIDE INJ 20 MEQ in LACTATED RINGERS 1,000 ML IV SCH (18:00)
[2021-09-23] MEDS ORDERED: ACETAMINOPHEN 325 MG TABLET PO PRN (18:30)
[2021-09-23] MEDS ORDERED: SODIUM CHLORIDE 0.9% 1,000 ML IV SCH (18:30)
[2021-09-23] MEDS ORDERED: LEVOFLOXACIN INJ 750 MG in PREMIX 1 EACH IV ONE (21:00)
[2021-09-23] MEDS: DOCUSATE SODIUM 100 MG CAPSULE PO SCH (22:46)
[2021-09-24] MEDS: PIPERACILLIN/TAZOBACTAM 3,375 MG in SODIUM CHLORIDE 0.9% 100 ML IV SCH ×2 (00:46→05:26)
[2021-09-24 05:45] LABS: Basophils % 0.1 % (0.0-0.8); Hematocrit 31.2 VOL% (35.7-47.0); Hemoglobin 10.1 GM/DL (12.0-16.0); Immature Granulocytes % 1.5 %; Immature Granulocytes Absolute 0.23 #; Lymphocytes # 0.4 10*3/uL (1.4-4.0); Lymphocytes % 2.5 % (21.3-54.2); Mean Corpuscular HGB Conc 32.4 GM/DL (32-36); Mean Corpuscular Volume 90.7 FL (87-102); Mean Platelet Volume 12.3 FL (9.6-12.0); Monocytes % 4.5 % (1.7-12.7); NRBC # 0.02 10*3/uL; Neutrophils % 91.4 % (38.7-73.9); Platelet Count 134 T/CUMM (130-400); Red Blood Count 3.44 MC/CUMM (3.8-5.5); Red Cell Distribution Width 14.1 % (9.3-17.3); White Blood Count 15.7 T/CUMM (4-12)
[2021-09-24 06:11] LABS: Albumin 2.9 G/DL (3.4-5.0); Band Neutrophils 8 % (0-10); Bilirubin,Total 1.4 MG/DL (0.20-1.00); Calcium 8.9 MG/DL (8.5-10.1); Hypochromasia Slight; Lymphocytes 2 % (20-55); Microcytosis Slight; Platelet Estimate Normal; Potassium 3.1 MMOL/L (3.5-5.1); Segmented Neutrophils 84 % (50-85); Total Cells Counted 100; Total Protein 6.3 G/DL (6.4-8.2)
[2021-09-24] MEDS ORDERED: PANTOPRAZOLE 40 MG TABLET PO SCH (09:00)
[2021-09-24] MEDS: DOCUSATE SODIUM 100 MG CAPSULE PO SCH (09:46)
[2021-09-24 11:53] VITALS: BP 106/76
[2021-09-24] MEDS ORDERED: HEPARIN 10,000 UNIT/10 ML VIAL IV SCH (14:00)
[2021-09-24] MEDS ORDERED: AMIODARONE 150 MG/3 ML VIAL ONE (15:34)
[2021-09-24] MEDS ORDERED: SODIUM BICARBONATE 50 MEQ/50 ML SYRINGE IV ONE (15:34)
[2021-09-24] MEDS ORDERED: ETOMIDATE 20 MG/10 ML VIAL IV ONE (15:34)
[2021-09-24] MEDS ORDERED: EPINEPHrine 1 MG/10 ML SYRINGE ONE (15:34)
[2021-09-24] MEDS ORDERED: CALCIUM CHLORIDE 1,000 MG/10 ML SYRINGE IV ONE (15:34)
[2021-09-24] MEDS ORDERED: PIPERACILLIN/TAZOBACTAM 3,375 MG in SODIUM CHLORIDE 0.9% 100 ML IV SCH (21:00)
[2021-09-25] MEDS ORDERED: ETOMIDATE 20 MG/10 ML VIAL IV ONE (06:59)
[2021-09-25] MEDS ORDERED: ROCURONIUM 100 MG/10 ML VIAL IV ONE (07:00)
== END 2021-09-24 16:00 | disposition expired ==
LOC: N.ED 11:49 → N.EDINP 11:49 → N.5E 18:29 → N.CC 09-24 15:51
PROVIDERS: ADMIT Internal Medicine; ATTEND Internal Medicine